=== PATIENT | female | born 1960 | race Caucasian/White ===

== ENCOUNTER 2018-03-09 17:00 | Inpatient (IN) | payer MEDICARE, MEDICAID ==
[2018-03-09] MEDS ORDERED: methylPREDNISolone 125 MG* 2 ML VIAL IV ONE (17:26)
[2018-03-09 17:37] LABS: ABS Basophils 0.1 10^3/ul (0-0.2); ABS Eosinophils 0.1 10^3/ul (0-0.6); ABS Lymphocytes 1.4 10^3/ul (1.0-4.8); ABS Monocytes 0.5 10^3/ul (0-0.8); ABS Neutrophils 3.9 10^3/ul (1.5-7.7); ABS Nucleated RBC 0 10^3/ul; Eosinophil % 1.8 % (0-6); Hematocrit 41 % (35-47); Hemoglobin 14.2 g/dl (12.0-16.0); Lymphocyte % 23.3 % (25-47); Mean Corpuscular HGB Conc 35 g/dl (31-36); Mean Corpuscular Hemoglobin 31 pg (27-31); Mean Corpuscular Volume 88 fL (80-97); Mean Platelet Volume 8.2 um3 (7.4-10.4); Nucleated Red Blood Cells % 0.1; Platelet Count 174 10^3/ul (150-450); Red Blood Count 4.66 10^6/ul (4.00-5.40); Red Cell Distribution Width 13 % (10.5-15)
[2018-03-09 17:50] LABS: EGFR Non-African American 59.2 (>60)
[2018-03-09] MEDS: Albuterol/Ipratropium NEB.SOL* Albuterol 2.5 MG/Ipratropium 0.5 MG 3 ML INH SCH ×3 (18:00→18:49)
--- NOTE | 2018-03-09 18:07 | RAD ---
INDICATION: Wheezing. COMPARISON: Comparison is made with a prior study from [facility] 2007. TECHNIQUE: AP and lateral views of the chest were obtained. FINDINGS: The heart is within normal limits in size. Mediastinal and hilar contours appear within normal limits. The lungs are hyperinflated and clear. No pleural effusion is seen. IMPRESSION: THE LUNGS ARE HYPERINFLATED AND CLEAR.
[2018-03-09 19:22] LABS: Urine Appearance Clear; Urine Blood Negative (Negative); Urine Color Yellow; Urine Ketones 1+ (Negative); Urine Protein Negative (Negative); Urine Specific Gravity 1.012 (1.010-1.030); Urine Urobilinogen Negative (Negative)
[2018-03-09] MEDS ORDERED: Nicotine PATCH 21 MG/24 HR* PATCH TRANSDERM ONE (23:54)
--- NOTE | 2018-03-10 02:11 | ED ---
I, Leeanna Crane, scribed for Kristin Knapp MD on 03/09/18 at 2150 . Progress - Progress Note Progress Note: The pt is a sign out from at shift change pending MHE. Course/Dx - Course Course Of Treatment: The pt will be voluntarily admitted by Dr. Massey. She is diagnosed with psychosis NOS. Discharge - Sign-Out/Discharge Documenting (check all that apply): Discharge/Admit/Transfer - Admit, Receiving Sign-Out Receiving patient FROM: Martell Rojas - Pending MHE. - Discharge Plan Condition: Stable Disposition: PSYCHIATRIC FACILITY-[facility] [place] Referrals: Miguelito Hernandez MD [Medical Doctor] - The documentation as recorded by the Royce caballero Stephanie accurately reflects the service I personally performed and the decisions made by Aria roth Abdul, MD.
[2018-03-10] MEDS ORDERED: Nicotine GUM* 2 MG PO PRN (06:24)
[2018-03-10] MEDS ORDERED: Al Hydrox/Mg Hydrox/Simet LIQ* 30 ML UDC PO PRN (06:24)
[2018-03-10] MEDS ORDERED: Ibuprofen TAB* 400 MG PO ONE (07:25)
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
[2018-03-10] MEDS: Tiotropium Respimt 2.5 mcg(NF) 1 PUFF MDI INH SCH (10:24)
[2018-03-10] MEDS: Nicotine PATCH 21 MG/24 HR* PATCH TRANSDERM SCH (10:24)
[2018-03-10] MEDS: Vitamin THERAPEUTIC TAB PO SCH (10:24)
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
--- NOTE | 2018-03-10 10:48 | ED ---
Escobar Bruno Tiffany, scribed for Martell Rojas MD on 03/09/18 at 1736 . Psychiatric Complaint - HPI Summary HPI Summary: 57 year old F presenting to [facility] complains of paranoia since one and a half weeks ago. Symptoms aggravated by nothing. Symptoms alleviated by nothing. Patient has difficulty breathing, recent weight loss, delusional thoughts per sister. Hx COPD. Hx psychiatric disorders. Patient has not been taking her psychiatric medications appropriately per sister. - History Of Current Complaint Chief Complaint: EDAltMentalStatus Time Seen by Provider: 03/09/18 17:15 Hx Obtained From: Patient Onset/Duration: Lasting Weeks - 1.5 weeks, Still Present Aggravating Factor(s): Nothing Alleviating Factor(s): Nothing - Allergies/Home Medications Allergies/Adverse Reactions: Allergies Allergy/AdvReac Type Severity Reaction Status Date / Time divalproex sodium Allergy Unknown Verified 03/09/18 17:42 [From Depakote] Reaction Details gabapentin [From Neurontin] Allergy Unknown Verified 03/09/18 17:42 Reaction Details lithium Allergy Unknown Verified 03/09/18 17:42 Reaction Details quetiapine [From Seroquel] Allergy See Comment Verified 03/09/18 17:42 sertraline [From Zoloft] Allergy See Comment Verified 03/09/18 17:42 Home Medications: Home Medications Dextroamphetamine/Amphetamine [Adderall Xr 30 mg Capsule] 30 mg PO DAILY [History Confirmed 03/09/18] Diazepam TAB(*) [Valium TAB(*)] 10 mg PO BID PRN 03/09/18 [History Confirmed 08/16] Tiotropium [place] [Spiriva Respimat] 4 gm INH DAILY 03/09/18 [History Confirmed 03/09/18] PMH/Surg Hx/FS Hx/Imm Hx Previously Healthy: No Respiratory History: Reports: Hx Asthma, Hx Chronic Obstructive Pulmonary Disease (COPD) Psychiatric History: Reports: Hx Attention Deficit Hyperactivity Disorder, Hx Autism, Hx Post Traumatic Stress Disorder, Hx Bipolar Disorder, Hx Suicide Attempt - Surgical History Surgery Procedure, Year, and Place: Appendectomy Infectious Disease History: No Infectious Disease History: Denies: Traveled Outside the [place] in Last 30 Days - Family History Known Family History: Positive: Other - Sister has panic disorder - Social History Alcohol Use: None Hx Substance Use: Yes Substance Use Type: Reports: Marijuana Hx Tobacco Use: No Smoking Status (MU): Unknown if Ever Smoked Review of Systems Positive: Other - recent weight loss Positive: Other - difficulty breathing Positive: Other - paranoia, delusional thoughts All Other Systems Reviewed And Are Negative: Yes Physical Exam - Summary Physical Exam Summary: VITAL SIGNS: Reviewed. GENERAL: Patient is a thin female who is lying comfortable in the stretcher. Patient is not in any acute respiratory distress. HEAD AND FACE: No signs of trauma. No ecchymosis, hematomas or skull depressions. No sinus tenderness. EYES: PERRLA, EOMI x 2, No injected conjunctiva, no nystagmus. EARS: Hearing grossly intact. Ear canals and tympanic membranes are within normal limits. MOUTH: Oropharynx within normal limits. NECK: Supple, trachea is midline, no adenopathy, no JVD, no carotid bruit, no c- spine tenderness, neck with full ROM. CHEST: Symmetric, no tenderness at palpation LUNGS: She has wheezes in both lungs and crackles in bases of lungs CVS: Regular rate and rhythm, S1 and S2 present, no murmurs or gallops appreciated. ABDOMEN: Soft, non-tender. No signs of distention. No rebound no guarding, and no masses palpated. Bowel sounds are normal. EXTREMITIES: FROM in all major joints, no edema, no cyanosis or clubbing. NEURO: Alert and oriented x 3. No acute neurological deficits. Speech is normal and follows commands. SKIN: She has written notes on her legs PSYCH: Depressed, quiet, and denies any suicidal thoughts or plan. No homicidal thoughts or plan. No signs of psychosis or pressure speech. No tangential speech. Triage Information Reviewed: Yes Vital Signs On Initial Exam: Initial Vitals Temp Pulse Resp BP Pulse Ox 96.9 F 84 16 163/90 97 03/09/18 17:03 03/09/18 17:03 03/09/18 17:03 03/09/18 17:03 03/09/18 17:03 Vital Signs Reviewed: Yes Diagnostics - Vital Signs Vital Signs Temp Pulse Resp BP Pulse Ox 03/09/18 17:03 96.9 F 84 16 163/90 97 - Laboratory Lab Results: Lab Results 03/09/18 03/09/18 03/09/18 Range/Units 17:29 17:29 19:12 WBC 6.0 (3.5-10.8) 10^3/ul RBC 4.66 (4.00-5.40) 10^6/ul Hgb 14.2 (12.0-16.0) g/dl Hct 41 (35-47) % MCV 88 (80-97) fL MCH 31 (27-31) pg MCHC 35 (31-36) g/dl RDW 13 (10.5-15) % Plt Count 174 (150-450) 10^3/ul MPV 8.2 (7.4-10.4) um3 Neut % (Auto) 65.0 (38-83) % Lymph % (Auto) 23.3 L (25-47) % [place] % (Auto) 8.7 H (0-7) % Eos % (Auto) 1.8 (0-6) % Baso % (Auto) 1.2 (0-2) % Absolute Neuts (auto) 3.9 (1.5-7.7) 10^3/ul Absolute Lymphs (auto) 1.4 (1.0-4.8) 10^3/ul Absolute Monos (auto) 0.5 (0-0.8) 10^3/ul Absolute Eos (auto) 0.1 (0-0.6) 10^3/ul Absolute Basos (auto) 0.1 (0-0.2) 10^3/ul Absolute Nucleated RBC 0 10^3/ul Nucleated RBC % 0.1 Sodium 140 (139-145) mmol/L Potassium 4.4 (3.5-5.0) mmol/L Chloride 101 (101-111) mmol/L Carbon Dioxide 26 (22-32) mmol/L Anion Gap 13 H (2-11) mmol/L BUN 18 (6-24) mg/dL Creatinine 0.97 H (0.51-0.95) mg/dL Est GFR ( Amer) 76.1 (>60) Est GFR (Non-Af Amer) 59.2 (>60) BUN/Creatinine Ratio 18.6 (8-20) Glucose 78 (70-100) mg/dL Calcium 9.9 (8.6-10.3) mg/dL Total Bilirubin 1.10 H (0.2-1.0) mg/dL AST 44 H (13-39) U/L ALT 44 (7-52) U/L Alkaline Phosphatase 48 (34-104) U/L Total Protein 7.0 (6.4-8.9) g/dL Albumin 4.5 (3.2-5.2) g/dL Globulin 2.5 (2-4) g/dL Albumin/Globulin Ratio 1.8 (1-3) TSH 1.70 (0.34-5.60) mcIU/mL Urine Color Yellow Urine Appearance Clear Urine pH 5.0 (5-9) Ur Specific [place] 1.012 (1.010-1.030) Urine Protein Negative (Negative) Urine Ketones 1+ A (Negative) Urine Blood Negative (Negative) Urine Nitrate Negative (Negative) Urine Bilirubin Negative (Negative) Urine Urobilinogen Negative (Negative) Ur Leukocyte Esterase Negative (Negative) Urine Glucose Negative (Negative) Salicylates < 2.50 (<30) mg/dL Urine Opiates Screen (None Detect) Acetaminophen < 15 mcg/mL Ur Barbiturates Screen (None Detect) Ur Phencyclidine Scrn (None Detect) Ur Amphetamines Screen (None Detect) U Benzodiazepines Scrn (None Detect) Urine Cocaine Screen (None Detect) U Cannabinoids Screen (None Detect) Serum Alcohol < 10 (<10) mg/dL 03/09/18 Range/Units 19:12 WBC (3.5-10.8) 10^3/ul RBC (4.00-5.40) 10^6/ul Hgb (12.0-16.0) g/dl Hct (35-47) % MCV (80-97) fL MCH (27-31) pg MCHC (31-36) g/dl RDW (10.5-15) % Plt Count (150-450) 10^3/ul MPV (7.4-10.4) um3 Neut % (Auto) (38-83) % Lymph % (Auto) (25-47) % [place] % (Auto) (0-7) % Eos % (Auto) (0-6) % Baso % (Auto) (0-2) % Absolute Neuts (auto) (1.5-7.7) 10^3/ul Absolute Lymphs (auto) (1.0-4.8) 10^3/ul Absolute Monos (auto) (0-0.8) 10^3/ul Absolute Eos (auto) (0-0.6) 10^3/ul Absolute Basos (auto) (0-0.2) 10^3/ul Absolute Nucleated RBC 10^3/ul Nucleated RBC % Sodium (139-145) mmol/L Potassium (3.5-5.0) mmol/L Chloride (101-111) mmol/L Carbon Dioxide (22-32) mmol/L Anion Gap (2-11) mmol/L BUN (6-24) mg/dL Creatinine (0.51-0.95) mg/dL Est GFR ( Amer) (>60) Est GFR (Non-Af Amer) (>60) BUN/Creatinine Ratio (8-20) Glucose (70-100) mg/dL Calcium (8.6-10.3) mg/dL Total Bilirubin (0.2-1.0) mg/dL AST (13-39) U/L ALT (7-52) U/L Alkaline Phosphatase (34-104) U/L Total Protein (6.4-8.9) g/dL Albumin (3.2-5.2) g/dL Globulin (2-4) g/dL Albumin/Globulin Ratio (1-3) TSH (0.34-5.60) mcIU/mL Urine Color Urine Appearance Urine pH (5-9) Ur Specific [place] (1.010-1.030) Urine Protein (Negative) Urine Ketones (Negative) Urine Blood (Negative) Urine Nitrate (Negative) Urine Bilirubin (Negative) Urine Urobilinogen (Negative) Ur Leukocyte Esterase (Negative) Urine Glucose (Negative) Salicylates (<30) mg/dL Urine Opiates Screen None detected (None Detect) Acetaminophen mcg/mL Ur Barbiturates Screen None detected (None Detect) Ur Phencyclidine Scrn None detected (None Detect) Ur Amphetamines Screen Presumptive positive A (None Detect) U Benzodiazepines Scrn Presumptive positive A (None Detect) Urine Cocaine Screen None detected (None Detect) U Cannabinoids Screen Presumptive positive A (None Detect) Serum Alcohol (<10) mg/dL Result Diagrams: 03/09/18 17:29 03/09/18 17:29 Lab Statement: Any lab studies that have been ordered have been reviewed, and results considered in the medical decision making process. - Radiology CXR Radiology Interpretation Completed By: Radiologist - THE LUNGS ARE HYPERINFLATED AND CLEAR. ED physician has reviewed this report. Course/Dx - Course Assessment/Plan: Blood work w/o a significant abnormality. She is medically cleared. She is awaiting for a MHE. Patient is hemodynamically stable and A+O x 3. This patient was signed out to Dr. Knapp at shift change. - Differential Dx/Clinical Impression Differential Diagnosis/HQI/PQRI: Positive: Acute Psychosis, Anxiety, Depression Provider Diagnosis: Anxiety Discharge - Sign-Out/Discharge Documenting (check all that apply): Discharge/Admit/Transfer - Discharge Plan Condition: Stable [place] [place] Disposition and Condition Condition: STABLE Disposition[place] [facility] [place] The documentation as recorded by the Escobar caballero Tiffany accurately reflects the service I personally performed and the decisions made by Bob roth Walter, MD.
[2018-03-10] MEDS: Acetaminophen TAB* 325 MG PO PRN (14:02)
[2018-03-10] MEDS: ARIPiprazole TAB* 5 MG PO SCH (16:00)
[2018-03-10] MEDS: Diazepam TAB(*) 10 MG PO SCH (16:00)
[2018-03-11] MEDS: Nicotine Patch Removal NOTE PATCH OFF SCH ×2 (00:58→20:50)
[2018-03-11] MEDS: Diazepam TAB(*) 10 MG PO SCH ×2 (00:59→08:43)
[2018-03-11] MEDS: Acetaminophen TAB* 325 MG PO PRN ×2 (08:41→16:37)
[2018-03-11] MEDS: ARIPiprazole TAB* 5 MG PO SCH (08:42)
[2018-03-11] MEDS: Tiotropium Respimt 2.5 mcg(NF) 1 PUFF MDI INH SCH (08:44)
[2018-03-11] MEDS: Vitamin THERAPEUTIC TAB PO SCH (08:44)
[2018-03-11] MEDS: Nicotine PATCH 21 MG/24 HR* PATCH TRANSDERM SCH (11:34)
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
[2018-03-11] MEDS: Zolpidem TAB* 5 MG PO PRN (20:49)
[2018-03-11] MEDS: OLANzapine TAB* 10 MG PO SCH (20:49)
[2018-03-12] MEDS: Vitamin THERAPEUTIC TAB PO SCH (08:43)
[2018-03-12] MEDS: Diazepam TAB(*) 5 MG PO SCH ×2 (08:44→15:50)
[2018-03-12] MEDS: Acetaminophen TAB* 325 MG PO PRN (08:45)
[2018-03-12] MEDS: Tiotropium Respimt 2.5 mcg(NF) 1 PUFF MDI INH SCH (11:39)
[2018-03-12] MEDS: Nicotine Inhaler* 10 MG AMP INH PRN (14:15)
[2018-03-12] MEDS ORDERED: Mouth Piece, Nicotine* 1 EACH CARTRIDGE ONE (14:15)
--- NOTE | 2018-03-12 19:58 | PN ---
Subjective - Subjective Subjective: Psychiatric Attending Progress Note: patient did sleep 7 to 8 hours last night. she reports zyprexa 10 mg and ambien 5 mg helped her to relax. she feels calmer, less agitated. per nursing she ate half her breakfast and half lunch. she has been drinking ensure plus. she remains seclusive to her room most of the day. she did attend an occasional group. she continues to exhibit thought disorganization irrelevant responses, rambling speech, flight of ideas, illogic and irrelevant statement. she also remains pressured, hyperverbal. she is able to take care of her ADL's. thus far, dietary consult has not been completed. patient had diminished appetite. she tells me that she cannot eat her entire meal because she feels full and is concerned about vomiting if she eats too much. patient does not make any delusional statement. she shows severe psychomotor acceleration. her speech is garbled and at times unintellibible. she is highly insecure. she apologizes frequently during our discussion. Vital Signs: Temp Pulse Resp BP Pulse Ox 98.2 F 63 16 149/80 100 03/12/18 07:48 03/12/18 07:48 03/12/18 15:50 03/12/18 07:48 03/12/18 07:48 Objective - Appearance Appearance: Thin Framed, Other - cahectic Dysmorphic Features: No Hygiene: Dirty Grooming: Disheveled - Behavior Psychomotor Activities: Abnormal-Increased Exhibits Abnormal Movement: Yes - Attitude and Relatedness Attitude and Relatedness: Child Like - needy, psychotically related, regressed Eye Contact: Fair - Speech Quality: Pressured Latencies: Short Quantity: Copious - Mood Patient's Decription of Mood: "Upset" - anxious, dysphoric - Affect Observed Affect: Labile Affect Consistent with: Euphoria - Thought Process Patient's Thought Process: Incoherent, Disorganized, Tangential, Filght of Ideas , Impoverished Thought Content: Yes Paranoid Ideation, No Passive Wish, No Suicidal Planning, No Homicidal Ideation - Sensorium Type of Hallucinations: Visual: No, Auditory: No, Command: No - Level of Consciousness Level of Consciousness: Agitated Orientation: Yes Intact, Yes Orientated to Time, Yes Orientated to Place, Yes Orientated to Person - Impulse Control Impulse Control: Impaired - Insight and Judgement Insight and Judgement: Impaired - Group Participation Particating in Group Activities: No - Medication Management Medication Management Adherence: Yes Assessment - Assessment Merits Inpatient Hospitalization: For Immediate Safety, For Stabilization, Diagnosis Determination, For Ongoing Evaluation Clinical Impression: 57 yo with psychotic illness likely scizoaffective disorder patient continues to be gravely disabled and meets criteria for continued hospital treatment. patient requires stabalization. she also is failure to thrive and malnourished anorexia likely secondary to psychosis. Plan - Plan Medications: Plan: continue zyprexa 10 mg po qhs ambien 5 mg po QHS awaiting dietary consult for malnutrition and anorexia weigh 3 times weekly ensure plus 4 times per day will likely require assisted living/supportive housing unlikely that patient will be able to return to independent living. if no weight gain after one week, I will request hospitalist consult to rule out organic cauase of anorexia.(ie malignancy) Current Medications Acetaminophen (Tylenol Tab*) 650 mg PO Q4H PRN PRN Reason: PAIN or TEMP > 101 F Last Admin: 03/12/18 08:45 Dose: 650 mg Al Hydrox/Mg Hydrox/Simethicone (Maalox Plus*) 30 ml PO Q4H PRN PRN Reason: INDIGESTION Device (Nicotine Mouth Piece*) 1 each INH .CARTRIDGE [facility] Diazepam (Valium Tab(*)) 5 mg PO BID@09,16 [facility] Last Admin: 03/12/18 15:50 Dose: 5 mg Diphenhydramine HCl (Benadryl Po*) 50 mg PO Q6H PRN PRN Reason: AGITATION/INSOMNIA Multivitamins (Theragran Tab*) 1 tab PO DAILY [facility] Last Admin: 03/12/18 08:43 Dose: 1 tab Nicotine (Nicotine Inhaler*) 10 mg INH Q2H PRN PRN Reason: CRAVING Last Admin: 03/12/18 14:15 Dose: 10 mg Nicotine (Nicotine Patch 14 Mg/24 Hr*) 1 patch TRANSDERM DAILY [facility] Olanzapine (Zyprexa Tab*) 10 mg PO BEDTIME [facility] Last Admin: 03/11/18 20:49 Dose: 10 mg Pharmacy Profile Note (Nicotine Patch Removal Note*) 1 note PATCH OFF 2100 [facility] Last Admin: 03/11/18 20:50 Dose: 1 note Tiotropium [place] (Spiriva Respimat 2.5 Mcg(Nf)) 1 puff INH DAILY [facility] Last Admin: 03/12/18 11:39 Dose: Not Given Trazodone HCl (Desyrel Tab*) 50 mg PO BEDTIME PRN PRN Reason: mid am awakening Zolpidem Tartrate (Ambien Tab*) 5 mg PO BEDTIME PRN PRN Reason: INSOMNIA Last Admin: 03/11/18 20:49 Dose: 5 mg
[2018-03-12] MEDS: OLANzapine TAB* 10 MG PO SCH (20:58)
[2018-03-12] MEDS: traZODone TAB* 50 MG TAB PO PRN (20:58)
[2018-03-12] MEDS: Nicotine PATCH 14 MG/24 HR* PATCH TRANSDERM SCH (21:00)
[2018-03-12] MEDS: Nicotine Patch Removal NOTE PATCH OFF SCH (21:01)
[2018-03-13] MEDS: Nicotine PATCH 14 MG/24 HR* PATCH TRANSDERM SCH (08:20)
[2018-03-13] MEDS: Tiotropium Respimt 2.5 mcg(NF) 1 PUFF MDI INH SCH (08:21)
[2018-03-13] MEDS: Acetaminophen TAB* 325 MG PO PRN ×3 (08:22→21:26)
[2018-03-13] MEDS: Vitamin THERAPEUTIC TAB PO SCH (08:22)
[2018-03-13] MEDS: Diazepam TAB(*) 5 MG PO SCH ×2 (08:22→16:39)
[2018-03-13] MEDS ORDERED: Spiriva Inhaler DEVICE* 1 EACH DEVICE INH SCH ×2 (11:00)
[2018-03-13] MEDS ORDERED: Spiriva Inhaler DEVICE* 1 EACH DEVICE SCH (11:00)
[2018-03-13] MEDS: Tiotropium CAP.INH* CAP.INH/18 MCG (USE ORDER SET !) INH SCH (12:33)
--- NOTE | 2018-03-13 12:53 | PN ---
Subjective - Subjective Subjective: Psychiatric Attending Progress Note: weight 99 lbs 8 oz today compared to 95 lbs 3 days ago (4.5 pound gain) sleeping through the night much improved appetite no complaints tolerating zyprexa well without any side effects noted voiding and having normal bowel movements Objective - Appearance Appearance: Thin Framed Dysmorphic Features: No Hygiene: Normal Grooming: Disheveled - Behavior Psychomotor Activities: Normal Exhibits Abnormal Movement: No - Attitude and Relatedness Attitude and Relatedness: Cooperative Eye Contact: Poor - Speech Quality: Unpressured Latencies: Normal Quantity: Copious - Mood Patient's Decription of Mood: "Okay" - Affect Observed Affect: Constricted Affect Consistent with: Dysphoria - Thought Process Patient's Thought Process: Disorganized, Loose Associations, Tangential, Circumstantial Thought Content: No Passive Wish, No Suicidal Planning, No Homicidal Ideation, No Paranoid Ideation - Sensorium Experiencing Hallucinations: No, Sensorium is Clear Type of Hallucinations: Visual: No, Auditory: No, Command: No - Level of Consciousness Level of Consciousness: Alert Orientation: Yes Intact, Yes Orientated to Time, Yes Orientated to Place, Yes Orientated to Person - Impulse Control Impulse Control: Intact - Insight and Judgement Insight and Judgement: Fair - Group Participation Particating in Group Activities: No - Medication Management Medication Management Adherence: Yes Assessment - Assessment Merits Inpatient Hospitalization: For Stabilization, For Ongoing Evaluation, Consolidate Improvements Clinical Impression: 57 yo with psychotic illness likely scizoaffective disorder patient continues to be gravely disabled and meets criteria for continued hospital treatment. patient requires stabalization. she also is failure to thrive and malnourished but has had 4.5 pound weight gain since admission. Plan - Plan Treatment Plan: Name: SHIMA ROSARIO Birthdate: 1960 [id number] Medications: Plan: Increase Zyprexa to 15 mg qhs continue ambien 5 mg qhs all other medications unchanged. Current Medications Acetaminophen (Tylenol Tab*) 650 mg PO Q4H PRN PRN Reason: PAIN or TEMP > 101 F Last Admin: 03/13/18 08:22 Dose: 650 mg Al Hydrox/Mg Hydrox/Simethicone (Maalox Plus*) 30 ml PO Q4H PRN PRN Reason: INDIGESTION Device (Nicotine Mouth Piece*) 1 each INH .CARTRIDGE ANASTASIA Device (Tiotropium Inhaler Device*) 1 each INH .USE w/ SPIRIVA CAPS [facility] Diazepam (Valium Tab(*)) 5 mg PO BID@,16 [facility] Last Admin: 03/13/18 08:22 Dose: 5 mg Diphenhydramine HCl (Benadryl Po*) 50 mg PO Q6H PRN PRN Reason: AGITATION/INSOMNIA Multivitamins (Theragran Tab*) 1 tab PO DAILY [facility] Last Admin: 03/13/18 08:22 Dose: 1 tab Nicotine (Nicotine Inhaler*) 10 mg INH Q2H PRN PRN Reason: CRAVING Last Admin: 03/12/18 14:15 Dose: 10 mg Nicotine (Nicotine Patch 14 Mg/24 Hr*) 1 patch TRANSDERM DAILY [facility] Last Admin: 03/13/18 08:20 Dose: 1 patch Olanzapine (Zyprexa Tab*) 10 mg PO BEDTIME [facility] Last Admin: 03/12/18 20:58 Dose: 10 mg Pharmacy Profile Note (Nicotine Patch Removal Note*) 1 note PATCH OFF 2100 [facility] Last Admin: 03/12/18 21:01 Dose: Not Given Tiotropium [place] (Spiriva Respimat 2.5 Mcg(Nf)) 1 puff INH DAILY [facility] Last Admin: 03/13/18 08:21 Dose: Not Given Tiotropium [place] (Spiriva Cap.Inh*) 1 cap INH DAILY [facility] Last Admin: 03/13/18 12:33 Dose: 1 cap Trazodone HCl (Desyrel Tab*) 50 mg PO BEDTIME PRN PRN Reason: mid am awakening Last Admin: 03/12/18 20:58 Dose: 50 mg Zolpidem Tartrate (Ambien Tab*) 5 mg PO BEDTIME PRN PRN Reason: INSOMNIA Last Admin: 03/11/18 20:49 Dose: 5 mg
[2018-03-13] MEDS: Zolpidem TAB* 5 MG PO PRN (21:23)
[2018-03-13] MEDS: OLANzapine TAB* 10 MG PO SCH (21:24)
[2018-03-13] MEDS: Nicotine Patch Removal NOTE PATCH OFF SCH (22:53)
[2018-03-14] MEDS: Nicotine PATCH 14 MG/24 HR* PATCH TRANSDERM SCH (08:28)
[2018-03-14] MEDS: Tiotropium CAP.INH* CAP.INH/18 MCG (USE ORDER SET !) INH SCH (08:29)
[2018-03-14] MEDS: Vitamin THERAPEUTIC TAB PO SCH (08:31)
[2018-03-14] MEDS: Diazepam TAB(*) 5 MG PO SCH ×2 (08:31→15:41)
[2018-03-14] MEDS: Acetaminophen TAB* 325 MG PO PRN ×2 (08:38→15:41)
[2018-03-14] MEDS: Tiotropium Respimt 2.5 mcg(NF) 1 PUFF MDI INH SCH (11:13)
[2018-03-14] MEDS: Nicotine Patch Removal NOTE PATCH OFF SCH (20:07)
[2018-03-14] MEDS: OLANzapine TAB* 10 MG PO SCH (20:07)
[2018-03-14] MEDS: Zolpidem TAB* 5 MG PO PRN (20:51)
[2018-03-15] MEDS: Acetaminophen TAB* 325 MG PO PRN ×2 (07:26→15:58)
[2018-03-15] MEDS: Tiotropium CAP.INH* CAP.INH/18 MCG (USE ORDER SET !) INH SCH (08:21)
[2018-03-15] MEDS: Nicotine PATCH 14 MG/24 HR* PATCH TRANSDERM SCH (08:21)
[2018-03-15] MEDS: Diazepam TAB(*) 5 MG PO SCH ×2 (08:22→15:58)
[2018-03-15] MEDS: Vitamin THERAPEUTIC TAB PO SCH (08:23)
--- NOTE | 2018-03-15 16:38 | PN ---
Subjective - Subjective Date of Service: 03/15/18 Service Type: 88403 Hosp care 15 min low complexity Subjective: Saw patient in her room as she continues to be aloof and prefers to stay away from the crowd. Says her thoughts are clearer and she has been enjoying good sunshine and wishes to go out for a walk if allowed. Denies hallucinations, SI or HI. Continues to sleep enough however had interrupted sleep last night and was hesitant to ask for Ambien. Eating enough and has gained some weight per Nursing reports. Objective - Appearance Appearance: Healthy Appearing, Thin Framed Dysmorphic Features: No Hygiene: Normal Grooming: Well Kept - Behavior Psychomotor Activities: Normal Exhibits Abnormal Movement: No - Attitude and Relatedness Attitude and Relatedness: Appropriate Eye Contact: Good - Speech Quality: Unpressured Latencies: Normal Quantity: Appropriate - Mood Patient's Decription of Mood: "Fine" - Affect Observed Affect: Depressed Affect Consistent with: Dysphoria - Thought Process Patient's Thought Process: Coherent, Goal Directed Thought Content: Yes Paranoid Ideation - Unspecified, No Passive Wish, No Suicidal Planning, No Homicidal Ideation - Sensorium Experiencing Hallucinations: No, Sensorium is Clear Type of Hallucinations: Visual: No, Auditory: No, Command: No - Level of Consciousness Level of Consciousness: Alert Orientation: Yes Intact, Yes Orientated to Time, Yes Orientated to Place, Yes Orientated to Person - Impulse Control Impulse Control: Intact - Insight and Judgement Insight and Judgement: Fair - Group Participation Particating in Group Activities: No - Medication Management Medication Management Adherence: Yes - Stays to self. Assessment - Assessment Merits Inpatient Hospitalization: For Stabilization, Pending Safe DC Plan Clinical Impression: Improving on current treatments and will need more time to consolidate improvement. Plan - Plan Treatment Plan: Name: SHIMA ROSARIO Birthdate: 1960 [id number] Continued Medication Management: Continue Outpt Medication Medications: Current Medications Acetaminophen (Tylenol Tab*) 650 mg PO Q4H PRN PRN Reason: PAIN or TEMP > 101 F Last Admin: 03/15/18 15:58 Dose: 650 mg Al Hydrox/Mg Hydrox/Simethicone (Maalox Plus*) 30 ml PO Q4H PRN PRN Reason: INDIGESTION Device (Nicotine Mouth Piece*) 1 each INH .CARTRIDGE ANASTASIA Device (Tiotropium Inhaler Device*) 1 each INH .USE w/ SPIRIVA CAPS [facility] Diazepam (Valium Tab(*)) 5 mg PO BID@ [facility] Last Admin: 03/15/18 15:58 Dose: 5 mg Diphenhydramine HCl (Benadryl Po*) 50 mg PO Q6H PRN PRN Reason: AGITATION/INSOMNIA Multivitamins (Theragran Tab*) 1 tab PO DAILY [facility] Last Admin: 03/15/18 08:23 Dose: 1 tab Nicotine (Nicotine Inhaler*) 10 mg INH Q2H PRN PRN Reason: CRAVING Last Admin: 03/12/18 14:15 Dose: 10 mg Nicotine (Nicotine Patch 14 Mg/24 Hr*) 1 patch TRANSDERM DAILY [facility] Last Admin: 03/15/18 08:21 Dose: 1 patch Olanzapine (Zyprexa Tab*) 15 mg PO BEDTIME [facility]STAS[facility] Last Admin: 03/14/18 20:07 Dose: 15 mg Pharmacy Profile Note (Nicotine Patch Removal Note*) 1 note PATCH OFF 2100 [facility] Last Admin: 03/14/18 20:07 Dose: 1 note Tiotropium [place] (Spiriva Cap.Inh*) 1 cap INH DAILY [facility] Last Admin: 03/15/18 08:21 Dose: 1 cap Trazodone HCl (Desyrel Tab*) 50 mg PO BEDTIME PRN PRN Reason: mid am awakening Last Admin: 03/12/18 20:58 Dose: 50 mg Zolpidem Tartrate (Ambien Tab*) 5 mg PO BEDTIME PRN PRN Reason: INSOMNIA Last Admin: 03/14/18 20:51 Dose: 5 mg - Discharge Plan Discharge Plan: [facility]
[2018-03-15] MEDS: Zolpidem TAB* 5 MG PO PRN (20:40)
[2018-03-15] MEDS: OLANzapine TAB* 10 MG PO SCH (20:40)
[2018-03-15] MEDS: Nicotine Patch Removal NOTE PATCH OFF SCH (21:16)
[2018-03-16] MEDS: traZODone TAB* 50 MG TAB PO PRN (03:32)
[2018-03-16] MEDS: Vitamin THERAPEUTIC TAB PO SCH (07:37)
[2018-03-16] MEDS: Nicotine PATCH 14 MG/24 HR* PATCH TRANSDERM SCH (07:37)
[2018-03-16] MEDS: Diazepam TAB(*) 5 MG PO SCH (07:37)
[2018-03-16] MEDS: Tiotropium CAP.INH* CAP.INH/18 MCG (USE ORDER SET !) INH SCH (10:55)
--- NOTE | 2018-03-16 14:11 | PN ---
Subjective - Subjective Subjective: Psychiatric Attending Progress Note: family meeting with 87 yo mother and older sister. after graduating high school , patient went to live in [place] near her father and worked as a dealer sales rep for 12 years. she abused drugs (cocaine). she medicated her mental issues with drugs (cocaine ). Past 15 years mental health has deteriorated further. never really took medication for very long. no one has been able to get her to consistently follow up with mental health providers. very abusive verbally to family when she is decompensated but not physically aggressive. MSE: patient was highly disruptive to meeting. pressured, loud, disorganized speech, constantly interrupting, rambling often about irrelevant topics. unable to wait her turn. highly labile. crying one minute laughing the next. no AH,VH,SI,HI. patient has flight of ideas and racing thoughts. distractible and agitated alert and oriented. insight and judgement are poor. Impression: schizoaffective Disorder bipolar type manic with psychotic features Plan: d/c zyprexa start saphris 10 mg qhs INcrease Valium to 10 mg BID at 9 and 9 Start carbemazepam XR 200 mg daily for bipolar [place]/mood stabalization motrin 400 mg q4h for back pain Assessment - Assessment Clinical Impression: 57 yo with psychotic illness likely scizoaffective disorder patient continues to be gravely disabled and meets criteria for continued hospital treatment. patient requires stabalization. she also is failure to thrive and malnourished but has had 4.5 pound weight gain since admission. Plan - Plan Treatment Plan: Name: SHIMA ROSARIO Birthdate: 1960 [id number] Medications: Current Medications Acetaminophen (Tylenol Tab*) 650 mg PO Q4H PRN PRN Reason: PAIN or TEMP > 101 F Last Admin: 03/15/18 15:58 Dose: 650 mg Al Hydrox/Mg Hydrox/Simethicone (Maalox Plus*) 30 ml PO Q4H PRN PRN Reason: INDIGESTION Device (Nicotine Mouth Piece*) 1 each INH .CARTRIDGE ANASTSAIA Device (Tiotropium Inhaler Device*) 1 each INH .USE w/ SPIRIVA CAPS ANASTASIA Last Admin: 03/16/18 10:54 Dose: 1 each Diazepam (Valium Tab(*)) 5 mg PO BID@09,16 [facility] Last Admin: 03/16/18 07:37 Dose: 5 mg Diphenhydramine HCl (Benadryl Po*) 50 mg PO Q6H PRN PRN Reason: AGITATION/INSOMNIA Multivitamins (Theragran Tab*) 1 tab PO DAILY [facility] Last Admin: 03/16/18 07:37 Dose: 1 tab Nicotine (Nicotine Inhaler*) 10 mg INH Q2H PRN PRN Reason: CRAVING Last Admin: 03/12/18 14:15 Dose: 10 mg Nicotine (Nicotine Patch 14 Mg/24 Hr*) 1 patch TRANSDERM DAILY [facility] Last Admin: 03/16/18 07:37 Dose: 1 patch Olanzapine (Zyprexa Tab*) 15 mg PO BEDTIME [facility] Last Admin: 03/15/18 20:40 Dose: 15 mg Pharmacy Profile Note (Nicotine Patch Removal Note*) 1 note PATCH OFF 2100 [facility] Last Admin: 03/15/18 21:16 Dose: 1 note Tiotropium [place] (Spiriva Cap.Inh*) 1 cap INH DAILY [facility] Last Admin: 03/16/18 10:55 Dose: 1 cap Trazodone HCl (Desyrel Tab*) 100 mg PO BEDTIME [facility]
[2018-03-16] MEDS ORDERED: Diazepam TAB(*) 5 MG PO ONE (14:35)
[2018-03-16] MEDS: Ibuprofen TAB* 400 MG PO PRN (16:25)
[2018-03-16] MEDS: ASENAPINE 10 MG SL SCH (20:18)
[2018-03-16] MEDS: Diazepam TAB(*) 10 MG PO SCH (20:18)
[2018-03-16] MEDS: hydrOXYzine HCL TAB* 50 MG PO PRN (20:18)
[2018-03-16] MEDS: Nicotine Patch Removal NOTE PATCH OFF SCH (20:19)
[2018-03-16] MEDS ORDERED: traZODone TAB* 50 MG TAB PO SCH ×2 (21:00)
[2018-03-17] MEDS: Ibuprofen TAB* 400 MG PO PRN ×2 (05:05→17:49)
[2018-03-17] MEDS: hydrOXYzine HCL TAB* 25 MG PO PRN (05:56)
[2018-03-17] MEDS: Acetaminophen TAB* 325 MG PO PRN (05:56)
[2018-03-17] MEDS: Nicotine Inhaler* 10 MG AMP INH PRN (05:59)
[2018-03-17] MEDS: Vitamin THERAPEUTIC TAB PO SCH (08:16)
[2018-03-17] MEDS: Nicotine PATCH 14 MG/24 HR* PATCH TRANSDERM SCH (08:16)
[2018-03-17] MEDS: Tiotropium CAP.INH* CAP.INH/18 MCG (USE ORDER SET !) INH SCH (08:16)
[2018-03-17] MEDS: Diazepam TAB(*) 10 MG PO SCH ×2 (08:22→20:36)
[2018-03-17] MEDS ORDERED: carBAMazepine ER TAB(*) 200 MG PO SCH (09:00)
--- NOTE | 2018-03-17 16:23 | PN ---
Subjective - Subjective Subjective: Psychiatric Attending Progress Note: slept 6 to 7 hours last night (saprhis 10 mg, Hydroxyzine 50 mg and Valium 10 mg ) marginal functioning on the unit. Patient does not attend groups and interacts minimally with other patients. She has been eating most of her meals and has gained weight since admission. Admission weight was 95 lbs on 03/10/2018 Today's weight () is 103 lbs. Total weight gain in one week is 8 pounds. reports feeling dizzy, shaky for 3 hours after taking Carbamazepine ER 200 mg this AM MSE: remains disheveled with poor hygiene. speech: hyperverbal, rapid rate, pressured, mood: labile. euphoric and at times irritable. Affect: elevated amplitude TP: exhibits disorganized thinking with tangentiality and irrelevant and illogic constructs derails from conversation, flight of ideas, TC: I have not observed paranoia. family tells me that she has been very delusional. I have not seen this. denies AH,VH,SI,HI, mostly talks about medication. reports vague side effects which she attributes to specific medications. alert and oriented in all spheres cogntive testing deferred grossly impaired insight and judgment. Impression: Schizoaffective disorder bipolar type. currently manic with psychotic features Plan: Change Tegretol XR 200 mg from QAM to QHS. Saprhis 10 mg SL qhs change hydroxyzine to 50 mg qhs scheduled. may repeat x 1 if patient awakens mid AM Valium 10 mg BID. Assessment - Assessment Clinical Impression: 57 yo with psychotic illness likely scizoaffective disorder patient continues to be gravely disabled and meets criteria for continued hospital treatment. patient requires stabalization. she also is failure to thrive and malnourished but has had 4.5 pound weight gain since admission. Plan - Plan Treatment Plan: Name: SHIMA ROSARIO Birthdate: 1960 [id number] Medications: Current Medications Acetaminophen (Tylenol Tab*) 650 mg PO Q4H PRN PRN Reason: PAIN or TEMP > 101 F Last Admin: 03/17/18 05:56 Dose: 650 mg Al Hydrox/Mg Hydrox/Simethicone (Maalox Plus*) 30 ml PO Q4H PRN PRN Reason: INDIGESTION Asenapine (Saphris(Nf)) 10 mg SL BEDTIME [facility] Last Admin: 03/16/18 20:18 Dose: 10 mg Carbamazepine (Tegretol Xr Tab(*)) 200 mg PO BEDTIME [facility] Device (Nicotine Mouth Piece*) 1 each INH .CARTRIDGE [facility] Device (Tiotropium Inhaler Device*) 1 each INH .USE w/ SPIRIVA CAPS [facility] Last Admin: 03/16/18 10:54 Dose: 1 each Diazepam (Valium Tab(*)) 10 mg PO BID@ [facility] Last Admin: 03/17/18 08:22 Dose: 10 mg Diphenhydramine HCl (Benadryl Po*) 50 mg PO Q6H PRN PRN Reason: AGITATION/INSOMNIA Last Admin: 03/17/18 05:57 Dose: 50 mg Hydroxyzine HCl (Atarax Tab*) 50 mg PO BEDTIME PRN PRN Reason: INSOMNIA Last Admin: 03/16/18 20:18 Dose: 50 mg Hydroxyzine HCl (Atarax Tab*) 25 mg PO Q4H PRN PRN Reason: agitation/anxiety Last Admin: 03/17/18 05:56 Dose: 25 mg Hydroxyzine HCl (Atarax Tab*) 50 mg PO BEDTIME [facility] Ibuprofen (Motrin Tab*) 400 mg PO Q4H PRN PRN Reason: PAIN Last Admin: 03/17/18 05:05 Dose: 400 mg Multivitamins (Theragran Tab*) 1 tab PO DAILY [facility] Last Admin: 03/17/18 08:16 Dose: 1 tab Nicotine (Nicotine Inhaler*) 10 mg INH Q2H PRN PRN Reason: CRAVING Last Admin: 03/17/18 05:59 Dose: 10 mg Nicotine (Nicotine Patch 14 Mg/24 Hr*) 1 patch TRANSDERM DAILY [facility] Last Admin: 03/17/18 08:16 Dose: 1 patch Pharmacy Profile Note (Nicotine Patch Removal Note*) 1 note PATCH OFF 2100 [facility] Last Admin: 03/16/18 20:19 Dose: 1 note Tiotropium [place] (Spiriva Cap.Inh*) 1 cap INH DAILY [facility] Last Admin: 03/17/18 08:16 Dose: 1 cap
[2018-03-17] MEDS: ASENAPINE 10 MG SL SCH (20:36)
[2018-03-17] MEDS ORDERED: hydrOXYzine HCL TAB* 50 MG PO SCH (21:00)
[2018-03-17] MEDS: Nicotine Patch Removal NOTE PATCH OFF SCH (23:02)
[2018-03-18] MEDS: hydrOXYzine HCL TAB* 50 MG PO PRN (03:35)
[2018-03-18] MEDS: Ibuprofen TAB* 400 MG PO PRN ×3 (03:35→20:51)
[2018-03-18] MEDS: Nicotine PATCH 14 MG/24 HR* PATCH TRANSDERM SCH (08:35)
[2018-03-18] MEDS: Tiotropium CAP.INH* CAP.INH/18 MCG (USE ORDER SET !) INH SCH (08:36)
[2018-03-18] MEDS: Vitamin THERAPEUTIC TAB PO SCH (08:36)
[2018-03-18] MEDS: Diazepam TAB(*) 10 MG PO SCH ×2 (08:38→20:50)
[2018-03-18] MEDS ORDERED: Mouth Piece, Nicotine* 1 EACH CARTRIDGE ONE (14:15)
[2018-03-18] MEDS: Nicotine Inhaler* 10 MG AMP INH PRN ×2 (14:16→20:55)
[2018-03-18] MEDS ORDERED: chlorproMAZINE TAB* 50 MG PO PRN (15:43)
[2018-03-18] MEDS: ASENAPINE 10 MG SL SCH (20:48)
[2018-03-18] MEDS: carBAMazepine ER TAB(*) 200 MG PO SCH (20:49)
[2018-03-18] MEDS: chlorproMAZINE TAB* 50 MG PO SCH (20:50)
[2018-03-18] MEDS: Nicotine Patch Removal NOTE PATCH OFF SCH (20:54)
[2018-03-18] MEDS ORDERED: chlorproMAZINE TAB* 100 MG PO SCH (21:00)
[2018-03-19] MEDS: Ibuprofen TAB* 400 MG PO PRN ×2 (04:55→15:25)
[2018-03-19] MEDS: Nicotine PATCH 14 MG/24 HR* PATCH TRANSDERM SCH (08:33)
[2018-03-19] MEDS: Vitamin THERAPEUTIC TAB PO SCH (08:34)
[2018-03-19] MEDS: Tiotropium CAP.INH* CAP.INH/18 MCG (USE ORDER SET !) INH SCH (08:34)
[2018-03-19] MEDS: Diazepam TAB(*) 10 MG PO SCH ×2 (08:34→21:11)
[2018-03-19] MEDS: Nicotine Inhaler* 10 MG AMP INH PRN ×2 (08:36→15:25)
[2018-03-19] MEDS: hydrOXYzine HCL TAB* 25 MG PO PRN ×3 (10:56→21:13)
--- NOTE | 2018-03-19 12:29 | PN ---
Subjective - Subjective Date of Service: 03/19/18 Service Type: 12840 Hosp care 15 min low complexity Subjective: Patient seen in coverage for Dr. Boo. She remains paranoid and requests printouts of all her medications, appearing somewhat suspicious. She is tolerating her medications well and I understand that the ACT team has notified [facility] that they are willing to work with her following discharge. Kelly denies SI or HI and staff reports that she has no behavioral or management concerns on the unit. Objective - Appearance Appearance: Thin Framed Dysmorphic Features: No Hygiene: Normal Grooming: Well Kept - Behavior Psychomotor Activities: Normal Exhibits Abnormal Movement: No - Attitude and Relatedness Attitude and Relatedness: Guarded Eye Contact: Fair - Speech Quality: Unpressured Latencies: Normal Quantity: Appropriate - Mood Patient's Decription of Mood: "Okay" - Affect Observed Affect: Fair Affect Consistent with: Euthymia - Thought Process Patient's Thought Process: Coherent Thought Content: Yes Paranoid Ideation, No Passive Wish, No Suicidal Planning, No Homicidal Ideation - Sensorium Experiencing Hallucinations: No, Sensorium is Clear Type of Hallucinations: Visual: No, Auditory: No, Command: No - Level of Consciousness Level of Consciousness: Alert Orientation: Yes Intact, Yes Orientated to Time, Yes Orientated to Place, Yes Orientated to Person - Impulse Control Impulse Control: Poor - Insight and Judgement Insight and Judgement: Impaired - Group Participation Particating in Group Activities: Yes - Medication Management Medication Management Adherence: Yes Assessment - Assessment Merits Inpatient Hospitalization: For Immediate Safety, For Stabilization Inpatient DSM-V Dx: F25.0 Clinical Impression: 57 y.o. single, white female with a history of schizoaffective disorder, bipolar type, who arrives at the hospital with pronounced symptoms of paranoia, asocialization, abulia, anorexia and inability to care for herself in the outpatient environment. Plan - Plan Treatment Plan: Name: KELLY ROSARIO Birthdate: 1960 [id number] Patient on a medication regimen of asenapine 10mg SL qhs, carbamazepine XR 200mg PO qhs and diazepam 10mg PO BID. PO intake is improving, as is paranoia. ACT willing to initiate care after discharge. Needs further inpatient treatment for safety. Continued Medication Management: Start Medication Medications: Current Medications Acetaminophen (Tylenol Tab*) 650 mg PO Q4H PRN PRN Reason: PAIN or TEMP > 101 F Last Admin: 03/17/18 05:56 Dose: 650 mg Al Hydrox/Mg Hydrox/Simethicone (Maalox Plus*) 30 ml PO Q4H PRN PRN Reason: INDIGESTION Asenapine (Saphris(Nf)) 10 mg SL BEDTIME [facility] Last Admin: 03/18/18 20:48 Dose: 10 mg Carbamazepine (Tegretol Xr Tab(*)) 200 mg PO BEDTIME [facility] Last Admin: 03/18/18 20:49 Dose: 200 mg Chlorpromazine HCl (Thorazine Tab*) 50 mg PO BEDTIME [facility] Last Admin: 03/18/18 20:50 Dose: 50 mg Chlorpromazine HCl (Thorazine Tab*) 50 mg PO BEDTIME PRN PRN Reason: insomnia Device (Nicotine Mouth Piece*) 1 each INH .CARTRIDGE [facility] Device (Tiotropium Inhaler Device*) 1 each INH .USE w/ SPIRIVA CAPS [facility] Last Admin: 03/16/18 10:54 Dose: 1 each Diazepam (Valium Tab(*)) 10 mg PO BID@ [facility] Last Admin: 03/19/18 08:34 Dose: 10 mg Diphenhydramine HCl (Benadryl Po*) 50 mg PO Q6H PRN PRN Reason: AGITATION/INSOMNIA Last Admin: 03/17/18 05:57 Dose: 50 mg Hydroxyzine HCl (Atarax Tab*) 25 mg PO Q4H PRN PRN Reason: agitation/anxiety Last Admin: 03/19/18 10:56 Dose: 25 mg Ibuprofen (Motrin Tab*) 400 mg PO Q4H PRN PRN Reason: PAIN Last Admin: 03/19/18 04:55 Dose: 400 mg Multivitamins (Theragran Tab*) 1 tab PO DAILY [facility] Last Admin: 03/19/18 08:34 Dose: 1 tab Nicotine (Nicotine Inhaler*) 10 mg INH Q2H PRN PRN Reason: CRAVING Last Admin: 03/19/18 08:36 Dose: 10 mg Nicotine (Nicotine Patch 14 Mg/24 Hr*) 1 patch TRANSDERM DAILY [facility] Last Admin: 03/19/18 08:33 Dose: 1 patch Pharmacy Profile Note (Nicotine Patch Removal Note*) 1 note PATCH OFF 2100 [facility] Last Admin: 03/18/18 20:54 Dose: 1 note Tiotropium [place] (Spiriva Cap.Inh*) 1 cap INH DAILY [facility] Last Admin: 03/19/18 08:34 Dose: 1 cap - Discharge Plan Discharge Plan: Inpatient Hospitalization
[2018-03-19] MEDS: carBAMazepine ER TAB(*) 200 MG PO SCH (21:11)
[2018-03-19] MEDS: ASENAPINE 10 MG SL SCH (21:11)
[2018-03-19] MEDS: chlorproMAZINE TAB* 50 MG PO SCH (21:11)
[2018-03-19] MEDS: Nicotine Patch Removal NOTE PATCH OFF SCH (22:20)
[2018-03-20] MEDS: Vitamin THERAPEUTIC TAB PO SCH (08:20)
[2018-03-20] MEDS: Nicotine PATCH 14 MG/24 HR* PATCH TRANSDERM SCH (08:21)
[2018-03-20] MEDS: Tiotropium CAP.INH* CAP.INH/18 MCG (USE ORDER SET !) INH SCH (08:22)
[2018-03-20] MEDS: Diazepam TAB(*) 10 MG PO SCH ×2 (08:22→20:57)
[2018-03-20] MEDS: Nicotine Inhaler* 10 MG AMP INH PRN ×3 (08:23→21:33)
[2018-03-20] MEDS: Ibuprofen TAB* 400 MG PO PRN ×3 (08:25→20:57)
--- NOTE | 2018-03-20 11:45 | PN ---
Subjective - Subjective Subjective: Psychiatric Attending Progress Note: minimal improvement in mental status since admission with exception of improved appetite and 10 lb weight gain has various somatic complaints which change and are vague (ie.cant see or hear, pain, "rumbling" in my stomach). vitals have been stable. Objective - Appearance Appearance: Thin Framed Dysmorphic Features: No Hygiene: Dirty Grooming: Disheveled - Behavior Psychomotor Activities: Abnormal-Increased Exhibits Abnormal Movement: No - Attitude and Relatedness Attitude and Relatedness: Psychotically Related Eye Contact: Fair - Speech Quality: Unpressured Latencies: Short Quantity: Copious - Mood Patient's Decription of Mood: expansive, elevated - Affect Observed Affect: Labile - Thought Process Patient's Thought Process: Disorganized, Loose Associations, Tangential, Filght of Ideas Thought Content: Yes Paranoid Ideation, No Passive Wish, No Suicidal Planning, No Homicidal Ideation - Sensorium Experiencing Hallucinations: No, Sensorium is Clear Type of Hallucinations: Visual: No, Auditory: No, Command: No - Level of Consciousness Level of Consciousness: Alert Orientation: Yes Intact, Yes Orientated to Time, Yes Orientated to Place, Yes Orientated to Person - Impulse Control Impulse Control: Tenuous - Insight and Judgement Insight and Judgement: Impaired - Group Participation Particating in Group Activities: No - Medication Management Medication Management Adherence: Partial Assessment - Assessment Inpatient DSM-V Dx: F25.0 Clinical Impression: 57 yo with psychotic illness likely schizoaffective disorder patient continues to be gravely disabled and meets criteria for continued hospital treatment. patient requires stabalization. she also is failure to thrive and malnourished but has has gained 10 pounds since admission. Plan - Plan Medications: Plan: Titrate Carbamazepine ER gradually to target dose of 300 mg BID over next 3 to 4 days to target [place]/affective dysregulation Increase Saphris to 5 mg QAM and 10 mg QHS beginning on 03/23/2018 Thorazine 50 mg qhs hydroxyzine 50 mg q4h prn agitation Consider transfer to state hospital as patient may require longer term hospitalization due to limited treatment response. Will make further med changes above first and see if patient starts to respond. Acetaminophen (Tylenol Tab*) 650 mg PO Q4H PRN PRN Reason: PAIN or TEMP > 101 F Last Admin: 03/17/18 05:56 Dose: 650 mg Al Hydrox/Mg Hydrox/Simethicone (Maalox Plus*) 30 ml PO Q4H PRN PRN Reason: INDIGESTION Asenapine (Saphris(Nf)) 10 mg SL BEDTIME [facility] Last Admin: 03/19/18 21:11 Dose: 10 mg Carbamazepine (Tegretol Xr Tab(*)) 200 mg PO BEDTIME [facility] Last Admin: 03/19/18 21:11 Dose: 200 mg Chlorpromazine HCl (Thorazine Tab*) 50 mg PO BEDTIME [facility] Last Admin: 03/19/18 21:11 Dose: 50 mg Chlorpromazine HCl (Thorazine Tab*) 50 mg PO BEDTIME PRN PRN Reason: insomnia Device (Nicotine Mouth Piece*) 1 each INH .CARTRIDGE [facility] Device (Tiotropium Inhaler Device*) 1 each INH .USE w/ SPIRIVA CAPS [facility] Last Admin: 03/16/18 10:54 Dose: 1 each Diazepam (Valium Tab(*)) 10 mg PO BID@ [facility] Last Admin: 03/20/18 08:22 Dose: 10 mg Diphenhydramine HCl (Benadryl Po*) 50 mg PO Q6H PRN PRN Reason: AGITATION/INSOMNIA Last Admin: 03/17/18 05:57 Dose: 50 mg Hydroxyzine HCl (Atarax Tab*) 25 mg PO Q4H PRN PRN Reason: agitation/anxiety Last Admin: 03/19/18 21:13 Dose: 25 mg Ibuprofen (Motrin Tab*) 400 mg PO Q4H PRN PRN Reason: PAIN Last Admin: 03/20/18 08:25 Dose: 400 mg Multivitamins (Theragran Tab*) 1 tab PO DAILY [facility] Last Admin: 03/20/18 08:20 Dose: 1 tab Nicotine (Nicotine Inhaler*) 10 mg INH Q2H PRN PRN Reason: CRAVING Last Admin: 03/20/18 08:23 Dose: 10 mg Nicotine (Nicotine Patch 14 Mg/24 Hr*) 1 patch TRANSDERM DAILY [facility] Last Admin: 03/20/18 08:21 Dose: 1 patch Pharmacy Profile Note (Nicotine Patch Removal Note*) 1 note PATCH OFF 2100 [facility] Last Admin: 03/19/18 22:20 Dose: 1 note Tiotropium [place] (Spiriva Cap.Inh*) 1 cap INH DAILY [facility] Last Admin: 03/20/18 08:22 Dose: 1 cap
[2018-03-20] MEDS: hydrOXYzine HCL TAB* 25 MG PO PRN (15:38)
[2018-03-20] MEDS: ASENAPINE 10 MG SL SCH (20:57)
[2018-03-20] MEDS: carBAMazepine ER TAB(*) 200 MG PO SCH (20:58)
[2018-03-20] MEDS: chlorproMAZINE TAB* 50 MG PO SCH (20:58)
[2018-03-20] MEDS: Nicotine Patch Removal NOTE PATCH OFF SCH (20:59)
[2018-03-21] MEDS: Ibuprofen TAB* 400 MG PO PRN ×4 (03:51→20:36)
[2018-03-21] MEDS: hydrOXYzine HCL TAB* 25 MG PO PRN ×3 (03:51→20:36)
[2018-03-21] MEDS: Tiotropium CAP.INH* CAP.INH/18 MCG (USE ORDER SET !) INH SCH (09:13)
[2018-03-21] MEDS: Nicotine Inhaler* 10 MG AMP INH PRN ×2 (09:15→20:42)
[2018-03-21] MEDS: Diazepam TAB(*) 10 MG PO SCH ×2 (09:15→20:36)
[2018-03-21] MEDS: Vitamin THERAPEUTIC TAB PO SCH (09:16)
[2018-03-21] MEDS: Nicotine PATCH 14 MG/24 HR* PATCH TRANSDERM SCH (09:17)
[2018-03-21] MEDS: carBAMazepine ER TAB(*) 200 MG PO SCH ×2 (09:17→20:37)
[2018-03-21] MEDS: ASENAPINE 10 MG SL SCH (20:36)
[2018-03-21] MEDS: chlorproMAZINE TAB* 50 MG PO SCH (20:36)
[2018-03-21] MEDS: Nicotine Patch Removal NOTE PATCH OFF SCH (20:39)
[2018-03-22] MEDS: Ibuprofen TAB* 400 MG PO PRN ×4 (06:15→20:31)
[2018-03-22] MEDS: Nicotine PATCH 14 MG/24 HR* PATCH TRANSDERM SCH (08:08)
[2018-03-22] MEDS: Vitamin THERAPEUTIC TAB PO SCH (08:10)
[2018-03-22] MEDS: Diazepam TAB(*) 10 MG PO SCH ×2 (08:10→20:29)
[2018-03-22] MEDS: carBAMazepine ER TAB(*) 200 MG PO SCH ×2 (08:10→20:28)
[2018-03-22] MEDS: Tiotropium CAP.INH* CAP.INH/18 MCG (USE ORDER SET !) INH SCH (08:11)
[2018-03-22] MEDS: Nicotine Inhaler* 10 MG AMP INH PRN ×3 (09:05→20:32)
[2018-03-22] MEDS: hydrOXYzine HCL TAB* 25 MG PO PRN ×3 (11:45→20:29)
[2018-03-22] MEDS: ASENAPINE 10 MG SL SCH (20:27)
[2018-03-22] MEDS: chlorproMAZINE TAB* 50 MG PO SCH (20:28)
[2018-03-22] MEDS: Nicotine Patch Removal NOTE PATCH OFF SCH (21:34)
[2018-03-23] MEDS: Ibuprofen TAB* 400 MG PO PRN ×3 (02:35→21:47)
[2018-03-23] MEDS: hydrOXYzine HCL TAB* 25 MG PO PRN (02:35)
[2018-03-23] MEDS: Nicotine Inhaler* 10 MG AMP INH PRN ×4 (02:35→21:50)
[2018-03-23] MEDS ORDERED: ASENAPINE 10 MG SL SCH (09:00)
[2018-03-23] MEDS ORDERED: carBAMazepine ER TAB(*) 100 MG PO SCH ×2 (09:00→21:00)
[2018-03-23 09:09] LABS: ABS Basophils 0 10^3/ul (0-0.2); ABS Eosinophils 0.2 10^3/ul (0-0.6); ABS Monocytes 0.7 10^3/ul (0-0.8); ABS Nucleated RBC 0 10^3/ul; Eosinophil % 2.2 % (0-6); Hematocrit 36 % (35-47); Hemoglobin 12.6 g/dl (12.0-16.0); Lymphocyte % 11.4 % (25-47); Mean Corpuscular HGB Conc 35 g/dl (31-36); Mean Corpuscular Hemoglobin 31 pg (27-31); Mean Corpuscular Volume 89 fL (80-97); Mean Platelet Volume 7.7 um3 (7.4-10.4); Nucleated Red Blood Cells % 0; Platelet Count 188 10^3/ul (150-450); Red Blood Count 4.07 10^6/ul (4.00-5.40); Red Cell Distribution Width 14 % (10.5-15); White Blood Count 8.9 10^3/ul (3.5-10.8)
[2018-03-23] MEDS: Nicotine PATCH 14 MG/24 HR* PATCH TRANSDERM SCH (09:29)
[2018-03-23] MEDS: Diazepam TAB(*) 10 MG PO SCH ×2 (09:29→21:47)
[2018-03-23] MEDS: Tiotropium CAP.INH* CAP.INH/18 MCG (USE ORDER SET !) INH SCH (09:30)
[2018-03-23] MEDS: Vitamin THERAPEUTIC TAB PO SCH (09:30)
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
[2018-03-23] MEDS: chlorproMAZINE TAB* 100 MG PO SCH (21:47)
[2018-03-23] MEDS: carBAMazepine ER TAB(*) 200 MG PO SCH (21:48)
[2018-03-23] MEDS: carBAMazepine ER TAB(*) 100 MG PO SCH (21:48)
[2018-03-23] MEDS: Nicotine Patch Removal NOTE PATCH OFF SCH (21:51)
[2018-03-24] MEDS: Ibuprofen TAB* 400 MG PO PRN ×4 (03:30→20:45)
[2018-03-24] MEDS ORDERED: Paliperidone ER TAB* 1.5 MG TAB.ER PO SCH (09:00)
[2018-03-24] MEDS: Nicotine PATCH 14 MG/24 HR* PATCH TRANSDERM SCH (09:01)
[2018-03-24] MEDS: Vitamin THERAPEUTIC TAB PO SCH (09:02)
[2018-03-24] MEDS: Tiotropium CAP.INH* CAP.INH/18 MCG (USE ORDER SET !) INH SCH (09:02)
[2018-03-24] MEDS: Diazepam TAB(*) 10 MG PO SCH ×2 (09:02→20:39)
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
[2018-03-24] MEDS: Nicotine Inhaler* 10 MG AMP INH PRN ×2 (14:11→20:46)
[2018-03-24] MEDS: carBAMazepine ER TAB(*) 100 MG PO SCH (20:37)
[2018-03-24] MEDS: chlorproMAZINE TAB* 100 MG PO SCH (20:38)
[2018-03-24] MEDS: carBAMazepine ER TAB(*) 200 MG PO SCH (20:38)
[2018-03-24] MEDS: Nicotine Patch Removal NOTE PATCH OFF SCH (20:42)
[2018-03-25] MEDS: Ibuprofen TAB* 400 MG PO PRN ×3 (01:44→20:56)
[2018-03-25] MEDS: Nicotine PATCH 14 MG/24 HR* PATCH TRANSDERM SCH (08:53)
[2018-03-25] MEDS: Diazepam TAB(*) 10 MG PO SCH ×2 (08:54→20:57)
[2018-03-25] MEDS: Paliperidone ER TAB* 3 MG TAB.ER PO SCH (08:55)
[2018-03-25] MEDS: Vitamin THERAPEUTIC TAB PO SCH (08:56)
[2018-03-25] MEDS: Tiotropium CAP.INH* CAP.INH/18 MCG (USE ORDER SET !) INH SCH (08:56)
[2018-03-25] MEDS: Nicotine Inhaler* 10 MG AMP INH PRN ×3 (13:13→20:57)
--- NOTE | 2018-03-25 15:50 | PN ---
Subjective - Subjective Subjective: Psychiatric Attending Progress Note: Patient has been attending some groups. She has been sleeping about 6 to 7 hours per night but has several mid am awakenings. She is pleasant but continues to be hyperverbal, irrelevant, with disorganized thoughts. When engaged in conversation, she exhibits flight of ideas, rambling from one topic to the next. She makes illogic statements. She makes paranoid statements with regard to staff. She remains pressured, hyperverbal, and and cannot stop herself from constant chatter. When I ask her to stop today she is able to do so for 15 minutes. Kelly tells me she wishes to go home and not to a state hospital. I told her that we have not made decision that she needs to go to state hospital at this time. I shared that we only recently changed her medication regimen two days ago and my plan is to allow the new regimen some time to work. She was pleased to find out that she is going to have more time on the unit to recover. Objective - Appearance Appearance: Thin Framed Dysmorphic Features: No Hygiene: Dirty Grooming: Disheveled - Behavior Psychomotor Activities: Abnormal-Increased Exhibits Abnormal Movement: Yes - Attitude and Relatedness Attitude and Relatedness: Psychotically Related Eye Contact: Fair - Speech Quality: Pressured Latencies: Short Quantity: Copious - Mood Patient's Decription of Mood: elevated - Affect Observed Affect: Labile Affect Consistent with: Euphoria - Thought Process Patient's Thought Process: Disorganized, Tangential, Filght of Ideas, Circumstantial, Over Inclusive Thought Content: Yes Paranoid Ideation, No Passive Wish, No Suicidal Planning, No Homicidal Ideation - Sensorium Experiencing Hallucinations: No, Sensorium is Clear Type of Hallucinations: Visual: No, Auditory: No, Command: No - Level of Consciousness Level of Consciousness: Agitated Orientation: Yes Intact, Yes Orientated to Time, Yes Orientated to Place, Yes Orientated to Person - Impulse Control Impulse Control: Tenuous - Insight and Judgement Insight and Judgement: Poor - Group Participation Particating in Group Activities: Yes - Medication Management Medication Management Adherence: Partial Assessment - Assessment Merits Inpatient Hospitalization: For Stabilization, Diagnosis Determination, For Ongoing Evaluation, Consolidate Improvements Clinical Impression: 57 yo schizoaffective bipolar disorder manic with psychotic features. patient has made limited progress. patient started on new regimen. she continues to require inpatient level of psychiatric care for stabalization. Plan - Plan Treatment Plan: Plan: INcrease Tegretol from 500 to 600 mg qhs valium 10 mg bid cotinue invega 3 mg qam. one more day. will increase to 6 mg qam on friday increase thorazine to 150 mg qhs to target insomnia tegretol level, cbc, lft's, cmp at 6 pm tonight
[2018-03-25 18:04] LABS: ABS Basophils 0 10^3/ul (0-0.2); ABS Eosinophils 0.2 10^3/ul (0-0.6); ABS Lymphocytes 0.9 10^3/ul (1.0-4.8); ABS Monocytes 0.7 10^3/ul (0-0.8); ABS Neutrophils 3.3 10^3/ul (1.5-7.7); ABS Nucleated RBC 0 10^3/ul; Eosinophil % 3.4 % (0-6); Hematocrit 33 % (35-47); Hemoglobin 11.3 g/dl (12.0-16.0); Lymphocyte % 17.3 % (25-47); Mean Corpuscular HGB Conc 34 g/dl (31-36); Mean Corpuscular Hemoglobin 30 pg (27-31); Mean Corpuscular Volume 89 fL (80-97); Mean Platelet Volume 7.6 um3 (7.4-10.4); Nucleated Red Blood Cells % 0.1; Platelet Count 206 10^3/ul (150-450); Red Blood Count 3.74 10^6/ul (4.00-5.40); Red Cell Distribution Width 14 % (10.5-15); White Blood Count 5.1 10^3/ul (3.5-10.8)
[2018-03-25 18:19] LABS: EGFR Non-African American 65.4 (>60)
[2018-03-25] MEDS: Nicotine Patch Removal NOTE PATCH OFF SCH (20:53)
[2018-03-25] MEDS: carBAMazepine ER TAB(*) 200 MG PO SCH (20:54)
[2018-03-25] MEDS: chlorproMAZINE TAB* 100 MG PO SCH (20:55)
[2018-03-26] MEDS: Ibuprofen TAB* 400 MG PO PRN ×4 (01:20→19:11)
[2018-03-26] MEDS: Nicotine Inhaler* 10 MG AMP INH PRN ×4 (06:30→21:21)
[2018-03-26] MEDS: Nicotine PATCH 14 MG/24 HR* PATCH TRANSDERM SCH (08:50)
[2018-03-26] MEDS: Tiotropium CAP.INH* CAP.INH/18 MCG (USE ORDER SET !) INH SCH (08:51)
[2018-03-26] MEDS: Paliperidone ER TAB* 3 MG TAB.ER PO SCH (08:51)
[2018-03-26] MEDS: Vitamin THERAPEUTIC TAB PO SCH (08:51)
[2018-03-26] MEDS: Diazepam TAB(*) 10 MG PO SCH ×2 (08:55→21:18)
--- NOTE | 2018-03-26 17:29 | PN ---
MHU: Group Therapy Note - Service Type Service Type: [id number] Group Psychotherapy - Medication Education Group: Patient was attentive and participatory in group, and remained in good behavioral control. Patient expressed positive insights regarding relevant treatment interventions. Patient stated understanding of material discussed and had appropriate questions.
[2018-03-26] MEDS: carBAMazepine ER TAB(*) 200 MG PO SCH (21:16)
[2018-03-26] MEDS: chlorproMAZINE TAB* 100 MG PO SCH (21:17)
[2018-03-26] MEDS: Nicotine Patch Removal NOTE PATCH OFF SCH (21:19)
[2018-03-27] MEDS: Ibuprofen TAB* 400 MG PO PRN ×3 (05:10→20:12)
[2018-03-27] MEDS: Nicotine Inhaler* 10 MG AMP INH PRN ×3 (05:10→21:29)
[2018-03-27] MEDS: Acetaminophen TAB* 325 MG PO PRN ×3 (07:40→20:12)
[2018-03-27] MEDS ORDERED: Paliperidone ER TAB* 1.5 MG TAB.ER PO SCH (09:00)
[2018-03-27] MEDS ORDERED: Paliperidone ER TAB* 3 MG TAB.ER PO SCH (09:00)
[2018-03-27] MEDS: Vitamin THERAPEUTIC TAB PO SCH (09:45)
[2018-03-27] MEDS: Diazepam TAB(*) 10 MG PO SCH ×2 (09:45→21:25)
[2018-03-27] MEDS: Tiotropium CAP.INH* CAP.INH/18 MCG (USE ORDER SET !) INH SCH (09:45)
[2018-03-27] MEDS: Nicotine PATCH 14 MG/24 HR* PATCH TRANSDERM SCH (09:46)
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
[2018-03-27] MEDS: Nicotine Patch Removal NOTE PATCH OFF SCH (21:25)
[2018-03-27] MEDS: chlorproMAZINE TAB* 100 MG PO SCH (21:25)
[2018-03-27] MEDS: carBAMazepine ER TAB(*) 100 MG PO SCH (21:26)
[2018-03-28] MEDS: LORazepam TAB(*) 1 MG PO PRN (04:11)
[2018-03-28] MEDS: Ibuprofen TAB* 400 MG PO PRN ×4 (04:11→20:54)
[2018-03-28] MEDS: Acetaminophen TAB* 325 MG PO PRN ×4 (04:11→20:55)
[2018-03-28] MEDS: Vitamin THERAPEUTIC TAB PO SCH (09:20)
[2018-03-28] MEDS: Diazepam TAB(*) 10 MG PO SCH ×2 (09:20→20:54)
[2018-03-28] MEDS: Tiotropium CAP.INH* CAP.INH/18 MCG (USE ORDER SET !) INH SCH (09:20)
[2018-03-28] MEDS: Nicotine PATCH 14 MG/24 HR* PATCH TRANSDERM SCH (09:23)
[2018-03-28] MEDS: Nicotine Inhaler* 10 MG AMP INH PRN ×2 (13:49→20:55)
[2018-03-28] MEDS: carBAMazepine ER TAB(*) 100 MG PO SCH (20:52)
[2018-03-28] MEDS: Paliperidone ER TAB* 1.5 MG TAB.ER PO SCH (20:52)
[2018-03-28] MEDS: Nicotine Patch Removal NOTE PATCH OFF SCH (20:53)
[2018-03-28] MEDS ORDERED: Mouth Piece, Nicotine* 1 EACH CARTRIDGE ONE (20:56)
[2018-03-29] MEDS: Acetaminophen TAB* 325 MG PO PRN ×5 (02:44→23:11)
[2018-03-29] MEDS: Ibuprofen TAB* 400 MG PO PRN ×5 (02:45→23:10)
[2018-03-29] MEDS: LORazepam TAB(*) 1 MG PO PRN (02:59)
[2018-03-29] MEDS: Nicotine Inhaler* 10 MG AMP INH PRN ×2 (03:52→20:30)
[2018-03-29] MEDS: Diazepam TAB(*) 10 MG PO SCH ×2 (08:21→20:27)
[2018-03-29] MEDS: Vitamin THERAPEUTIC TAB PO SCH (08:21)
[2018-03-29] MEDS: Tiotropium CAP.INH* CAP.INH/18 MCG (USE ORDER SET !) INH SCH (08:21)
[2018-03-29] MEDS: Nicotine PATCH 14 MG/24 HR* PATCH TRANSDERM SCH (08:22)
[2018-03-29] MEDS ORDERED: Paliperidone ER TAB* 6 MG TAB.ER PO SCH (09:00)
[2018-03-29 17:31] LABS: ABS Basophils 0.1 10^3/ul (0-0.2); ABS Eosinophils 0.2 10^3/ul (0-0.6); ABS Neutrophils 4.8 10^3/ul (1.5-7.7); ABS Nucleated RBC 0 10^3/ul; Eosinophil % 2.6 % (0-6); Hematocrit 37 % (35-47); Hemoglobin 12.6 g/dl (12.0-16.0); Lymphocyte % 14.1 % (25-47); Mean Corpuscular HGB Conc 34 g/dl (31-36); Mean Corpuscular Hemoglobin 30 pg (27-31); Mean Corpuscular Volume 89 fL (80-97); Mean Platelet Volume 7.1 um3 (7.4-10.4); Nucleated Red Blood Cells % 0.1; Platelet Count 267 10^3/ul (150-450); Red Blood Count 4.15 10^6/ul (4.00-5.40); Red Cell Distribution Width 14 % (10.5-15)
[2018-03-29 17:51] LABS: EGFR Non-African American 84.8 (>60)
[2018-03-29] MEDS: Paliperidone ER TAB* 1.5 MG TAB.ER PO SCH (20:24)
[2018-03-29] MEDS: Nicotine Patch Removal NOTE PATCH OFF SCH (20:26)
[2018-03-29] MEDS: carBAMazepine ER TAB(*) 100 MG PO SCH (20:31)
[2018-03-30] MEDS: Acetaminophen TAB* 325 MG PO PRN ×2 (03:28→08:51)
[2018-03-30] MEDS: LORazepam TAB(*) 1 MG PO PRN (03:28)
[2018-03-30] MEDS: Ibuprofen TAB* 400 MG PO PRN ×4 (03:29→20:59)
[2018-03-30] MEDS: Nicotine Inhaler* 10 MG AMP INH PRN ×3 (03:57→15:33)
[2018-03-30] MEDS: Tiotropium CAP.INH* CAP.INH/18 MCG (USE ORDER SET !) INH SCH (08:46)
[2018-03-30] MEDS: Diazepam TAB(*) 10 MG PO SCH ×2 (08:46→17:20)
[2018-03-30] MEDS: Vitamin THERAPEUTIC TAB PO SCH (08:46)
[2018-03-30] MEDS: Nicotine PATCH 14 MG/24 HR* PATCH TRANSDERM SCH (08:47)
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
--- NOTE | 2018-03-30 12:00 | PN ---
MHU: Group Therapy Note - Service Type Service Type: [id number] Group Psychotherapy - Cognitive Behavioral Group Therapy ( CBT):Patient presented in CBT programming as disorganized and disruptive in discussion and needed repeated redirection to attend to presented materials.
[2018-03-30] MEDS: chlorproMAZINE TAB* 50 MG PO PRN (15:32)
[2018-03-30] MEDS: Mouth Piece, Nicotine* 1 EACH CARTRIDGE INH SCH (15:33)
[2018-03-30] MEDS: carBAMazepine ER TAB(*) 100 MG PO SCH (20:56)
[2018-03-30] MEDS: Paliperidone ER TAB* 1.5 MG TAB.ER PO SCH (20:57)
[2018-03-30] MEDS ORDERED: LORazepam TAB(*) 1 MG PO SCH (21:00)
[2018-03-30] MEDS: Nicotine Patch Removal NOTE PATCH OFF SCH (22:44)
[2018-03-31] MEDS ORDERED: Mouth Piece, Nicotine* 1 EACH CARTRIDGE ONE (05:01)
[2018-03-31] MEDS: Nicotine Inhaler* 10 MG AMP INH PRN ×4 (05:05→21:55)
[2018-03-31] MEDS: Ibuprofen TAB* 400 MG PO PRN ×3 (05:05→21:54)
[2018-03-31] MEDS: Nicotine PATCH 14 MG/24 HR* PATCH TRANSDERM SCH (08:51)
[2018-03-31] MEDS: Tiotropium CAP.INH* CAP.INH/18 MCG (USE ORDER SET !) INH SCH (08:52)
[2018-03-31] MEDS: Vitamin THERAPEUTIC TAB PO SCH (08:52)
[2018-03-31] MEDS: Diazepam TAB(*) 10 MG PO SCH ×2 (08:52→17:42)
[2018-03-31] MEDS: chlorproMAZINE TAB* 50 MG PO PRN (13:01)
--- NOTE | 2018-03-31 13:52 | PN ---
MHU: Group Therapy Note - Service Type Service Type: [id number] Group Psychotherapy - Cognitive Behavioral Group Therapy ( CBT):Patient presented in CBT programming as disorganized and disruptive in discussion and needed repeated redirection to attend to presented materials.
[2018-03-31] MEDS ORDERED: carBAMazepine ER TAB(*) 200 MG PO SCH (21:00)
[2018-03-31] MEDS ORDERED: carBAMazepine ER TAB(*) 100 MG PO SCH (21:00)
[2018-03-31] MEDS: Diazepam TAB(*) 5 MG PO SCH (21:46)
[2018-03-31] MEDS: carBAMazepine ER TAB(*) 200 MG PO SCH (21:47)
[2018-03-31] MEDS: LORazepam TAB(*) 1 MG PO SCH (21:47)
[2018-03-31] MEDS: Paliperidone ER TAB* 6 MG TAB.ER PO SCH (21:47)
[2018-03-31] MEDS: Nicotine Patch Removal NOTE PATCH OFF SCH (21:50)
[2018-04-01] MEDS: Ibuprofen TAB* 400 MG PO PRN ×4 (05:00→20:50)
[2018-04-01] MEDS: Nicotine Inhaler* 10 MG AMP INH PRN ×4 (05:00→20:54)
[2018-04-01] MEDS: Diazepam TAB(*) 5 MG PO SCH ×2 (09:39→17:28)
[2018-04-01] MEDS: Vitamin THERAPEUTIC TAB PO SCH (09:40)
[2018-04-01] MEDS: Tiotropium CAP.INH* CAP.INH/18 MCG (USE ORDER SET !) INH SCH (09:41)
[2018-04-01] MEDS: Nicotine PATCH 14 MG/24 HR* PATCH TRANSDERM SCH (09:43)
[2018-04-01] MEDS: chlorproMAZINE TAB* 50 MG PO PRN (15:56)
[2018-04-01] MEDS: carBAMazepine ER TAB(*) 200 MG PO SCH (20:49)
[2018-04-01] MEDS: Paliperidone ER TAB* 6 MG TAB.ER PO SCH (20:50)
[2018-04-01] MEDS: LORazepam TAB(*) 1 MG PO SCH (20:51)
[2018-04-01] MEDS: Nicotine Patch Removal NOTE PATCH OFF SCH (22:26)
[2018-04-02] MEDS: Ibuprofen TAB* 400 MG PO PRN ×4 (01:08→20:46)
[2018-04-02] MEDS: LORazepam TAB(*) 1 MG PO PRN (01:10)
[2018-04-02] MEDS: chlorproMAZINE TAB* 50 MG PO PRN (06:56)
[2018-04-02] MEDS: Tiotropium CAP.INH* CAP.INH/18 MCG (USE ORDER SET !) INH SCH (09:44)
[2018-04-02] MEDS: Diazepam TAB(*) 5 MG PO SCH (09:44)
[2018-04-02] MEDS: Vitamin THERAPEUTIC TAB PO SCH (09:45)
[2018-04-02] MEDS: Nicotine PATCH 14 MG/24 HR* PATCH TRANSDERM SCH (09:49)
[2018-04-02] MEDS ORDERED: carBAMazepine ER TAB(*) 200 MG PO ONE ×2 (10:26→21:00)
[2018-04-02] MEDS ORDERED: Diazepam TAB(*) 5 MG PO ONE (10:53)
[2018-04-02] MEDS: LORazepam TAB(*) 1 MG PO SCH ×2 (16:10→21:21)
[2018-04-02] MEDS: Nicotine Patch Removal NOTE PATCH OFF SCH (20:40)
[2018-04-02] MEDS: Paliperidone ER TAB* 3 MG TAB.ER PO SCH (20:40)
[2018-04-02] MEDS: Paliperidone ER TAB* 1.5 MG TAB.ER PO SCH (20:40)
[2018-04-02] MEDS: Nicotine Inhaler* 10 MG AMP INH PRN (20:47)
[2018-04-02] MEDS ORDERED: carBAMazepine ER TAB(*) 100 MG PO ONE (21:00)
[2018-04-03] MEDS: Ibuprofen TAB* 400 MG PO PRN ×4 (04:30→21:12)
[2018-04-03] MEDS: LORazepam TAB(*) 1 MG PO PRN (04:30)
[2018-04-03] MEDS: Nicotine Inhaler* 10 MG AMP INH PRN ×5 (04:30→21:16)
[2018-04-03] MEDS: Vitamin THERAPEUTIC TAB PO SCH (08:40)
[2018-04-03] MEDS: Diazepam TAB(*) 10 MG PO SCH (08:40)
[2018-04-03] MEDS: Nicotine PATCH 14 MG/24 HR* PATCH TRANSDERM SCH (08:41)
[2018-04-03] MEDS: Tiotropium CAP.INH* CAP.INH/18 MCG (USE ORDER SET !) INH SCH (08:42)
[2018-04-03] MEDS: carBAMazepine ER TAB(*) 200 MG PO SCH ×2 (08:42→21:05)
--- NOTE | 2018-04-03 10:03 | PN ---
MHU: Group Therapy Note - Service Type Service Type: [id number] Group Psychotherapy - late entry 03/31/18: Medication Education Group: Patient presented as disorganized and disruptive in discussion and needed repeated redirection to attend to presented materials. Patient receptive to redirection when monopolizing group.
--- NOTE | 2018-04-03 11:32 | RAD ---
HISTORY: treatment refractory psychosis COMPARISONS: Head CT dated April 15, 2011 TECHNIQUE: The following sequences were obtained of the head: Sagittal T1-weighted images, axial T2-weighted images, axial FLAIR images, axial susceptibility weighted images, axial T1-weighted images. Additionally, axial diffusion-weighted images were obtained with calculated apparent diffusion coefficients. FINDINGS: HEMORRHAGE/INFARCT: There is no hemorrhage or acute infarct. MASSES/SHIFT: There is no mass or shift. EXTRA-AXIAL SPACES/MENINGES: There are no extra-axial fluid collections. SULCI AND VENTRICLES: The sulci and ventricles are normal in size and position for the patient's stated age. CEREBRUM: There are few scattered small foci of elevated T2/FLAIR signal within the periventricular and subcortical white matter. BRAINSTEM: There are no focal parenchymal abnormalities. CEREBELLUM: There are no focal parenchymal abnormalities. The cerebellar tonsils are normal in size and position. SELLA: The sella is normal. PINEAL: The pineal region is clear. CP ANGLE/TEMPORAL BONES: The labyrinthine structures are grossly normal. VESSELS: Normal flow-voids are noted within the visualized vertebral vasculature. DIFFUSION ABNORMALITIES: There are no diffusion abnormalities. PARANASAL SINUSES/MASTOIDS: The paranasal sinuses are clear. ORBITS: The orbits are unremarkable. BONES AND SOFT TISSUE: No bone or soft tissue abnormalities are noted. OTHER: None IMPRESSION: THERE ARE FEW, SCATTERED, SMALL FOCI OF ELEVATED T2/FLAIR SIGNAL WITHIN THE PERIVENTRICULAR AND SUBCORTICAL WHITE MATTER. WHILE THESE FINDINGS ARE NONSPECIFIC, THEY CAN BE SEEN IN ASSOCIATION WITH MIGRAINE HEADACHE, THE SEQUELA OF PREVIOUS INFECTION OR INFLAMMATION, AND CHRONIC SMALL VESSEL ISCHEMIA. DEMYELINATING DISEASE IS ALSO WITHIN THE DIFFERENTIAL, BUT IS CONSIDERED LESS LIKELY IN THE ABSENCE OF THE APPROPRIATE CLINICAL PRESENTATION.
--- NOTE | 2018-04-03 13:39 | PN ---
Subjective - Subjective Subjective: LATE ENTRY PROGRESS NOTE FOR 04/02/2018 Patient interviewed on 04/02/2018. patient appears calmer less agitated today. continues to have rambling, tangential speech with flight of ideas and irrelevant resposnes. she slept 6 hours in two three hour blocks last night. MRI shows non specific changes but no evidence of tumor or stroke Tegretol level 3.5 mg on 500 mg daily MSE: no SI or HI denies AH VH continues with pressured and loud speech psychomotor excess racing thoughts she is not delusional today she has increased goal directed behaviors still she is not suicidal or homicidal her insight and judgment are impaired Impression: Schizoaffective bipolar currently manic Plan: INcrease Tegretol to 800 mg daily over next few days Increase Invega to 9 mg over next few days. Taper and d/c valiium while replacing with Ativan Ativan increased to 2 mg q 5pm and 4 mg po QHS to target insomnia which is preventing remission of [place]. Thorazine 50 mg q4h prn agitation follow QTc, CBC, and LFT"S likely will need transfer to [facility] hospital for longer term treatment given patient's limited gains. /response to treatment.
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
[2018-04-03] MEDS: LORazepam TAB(*) 1 MG PO SCH ×2 (16:50→21:06)
[2018-04-03] MEDS: Paliperidone ER TAB* 3 MG TAB.ER PO SCH (21:07)
[2018-04-03] MEDS: Paliperidone ER TAB* 1.5 MG TAB.ER PO SCH (21:08)
[2018-04-03] MEDS: Nicotine Patch Removal NOTE PATCH OFF SCH (21:09)
[2018-04-04] MEDS: Nicotine Inhaler* 10 MG AMP INH PRN ×3 (04:24→20:37)
[2018-04-04] MEDS: LORazepam TAB(*) 1 MG PO PRN (04:25)
[2018-04-04] MEDS: Ibuprofen TAB* 400 MG PO PRN ×3 (04:26→15:25)
[2018-04-04] MEDS: Tiotropium CAP.INH* CAP.INH/18 MCG (USE ORDER SET !) INH SCH (09:08)
[2018-04-04] MEDS: carBAMazepine ER TAB(*) 200 MG PO SCH ×2 (09:09→20:23)
[2018-04-04] MEDS: Diazepam TAB(*) 10 MG PO SCH (09:09)
[2018-04-04] MEDS: Vitamin THERAPEUTIC TAB PO SCH (09:09)
[2018-04-04] MEDS: Nicotine PATCH 14 MG/24 HR* PATCH TRANSDERM SCH (09:10)
[2018-04-04] MEDS: Paliperidone ER TAB* 1.5 MG TAB.ER PO SCH (20:22)
[2018-04-04] MEDS: LORazepam TAB(*) 1 MG PO SCH (20:22)
[2018-04-04] MEDS: Paliperidone ER TAB* 3 MG TAB.ER PO SCH (20:22)
[2018-04-04] MEDS: Nicotine Patch Removal NOTE PATCH OFF SCH (20:42)
[2018-04-05] MEDS: Ibuprofen TAB* 400 MG PO PRN ×3 (00:30→08:25)
[2018-04-05] MEDS: LORazepam TAB(*) 1 MG PO PRN (00:30)
[2018-04-05] MEDS: Nicotine Inhaler* 10 MG AMP INH PRN ×4 (04:15→21:02)
[2018-04-05] MEDS: carBAMazepine ER TAB(*) 200 MG PO SCH ×2 (08:20→20:29)
[2018-04-05] MEDS: Tiotropium CAP.INH* CAP.INH/18 MCG (USE ORDER SET !) INH SCH (08:21)
[2018-04-05] MEDS: Vitamin THERAPEUTIC TAB PO SCH (08:21)
[2018-04-05] MEDS: Diazepam TAB(*) 10 MG PO SCH (08:21)
[2018-04-05] MEDS: Nicotine PATCH 14 MG/24 HR* PATCH TRANSDERM SCH (08:22)
[2018-04-05] MEDS ORDERED: Ibuprofen TAB* 400 MG PO PRN ×2 (13:14→13:46)
[2018-04-05] MEDS ORDERED: Ibuprofen TAB* 600 MG PO PRN (13:47)
[2018-04-05] MEDS: Ibuprofen TAB* 600 MG PO PRN ×2 (14:43→19:32)
[2018-04-05] MEDS: LORazepam TAB(*) 1 MG PO SCH (20:29)
[2018-04-05] MEDS: Nicotine Patch Removal NOTE PATCH OFF SCH (20:29)
[2018-04-05] MEDS: Paliperidone ER TAB* 1.5 MG TAB.ER PO SCH (20:30)
[2018-04-05] MEDS: Paliperidone ER TAB* 3 MG TAB.ER PO SCH (20:30)
[2018-04-06] MEDS: Ibuprofen TAB* 600 MG PO PRN ×5 (03:25→22:56)
[2018-04-06] MEDS: LORazepam TAB(*) 1 MG PO PRN (03:25)
[2018-04-06] MEDS: Nicotine Inhaler* 10 MG AMP INH PRN ×3 (07:23→20:30)
[2018-04-06] MEDS: Nicotine PATCH 14 MG/24 HR* PATCH TRANSDERM SCH (08:36)
[2018-04-06] MEDS: Vitamin THERAPEUTIC TAB PO SCH (08:37)
[2018-04-06] MEDS: Tiotropium CAP.INH* CAP.INH/18 MCG (USE ORDER SET !) INH SCH (08:37)
[2018-04-06] MEDS: Diazepam TAB(*) 10 MG PO SCH (08:38)
[2018-04-06] MEDS: carBAMazepine ER TAB(*) 200 MG PO SCH ×2 (08:38→20:28)
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
[2018-04-06] MEDS: Lisinopril TAB* 10 MG PO SCH (14:13)
[2018-04-06] MEDS: Paliperidone ER TAB* 3 MG TAB.ER PO SCH (20:28)
[2018-04-06] MEDS: LORazepam TAB(*) 1 MG PO SCH (20:29)
[2018-04-06] MEDS: Nicotine Patch Removal NOTE PATCH OFF SCH (21:14)
[2018-04-07] MEDS: Ibuprofen TAB* 600 MG PO PRN ×3 (03:13→11:50)
[2018-04-07] MEDS: Lisinopril TAB* 10 MG PO SCH (07:55)
[2018-04-07] MEDS: Tiotropium CAP.INH* CAP.INH/18 MCG (USE ORDER SET !) INH SCH (07:55)
[2018-04-07] MEDS: Nicotine PATCH 14 MG/24 HR* PATCH TRANSDERM SCH (07:56)
[2018-04-07] MEDS: Diazepam TAB(*) 10 MG PO SCH (07:56)
[2018-04-07] MEDS: Vitamin THERAPEUTIC TAB PO SCH (07:56)
[2018-04-07 08:25] LABS: ABS Basophils 0.1 10^3/ul (0-0.2); ABS Eosinophils 0.2 10^3/ul (0-0.6); ABS Lymphocytes 0.9 10^3/ul (1.0-4.8); ABS Monocytes 0.7 10^3/ul (0-0.8); ABS Neutrophils 4.4 10^3/ul (1.5-7.7); ABS Nucleated RBC 0 10^3/ul; Eosinophil % 3.3 % (0-6); Hematocrit 34 % (35-47); Hemoglobin 11.8 g/dl (12.0-16.0); Lymphocyte % 14.2 % (25-47); Mean Corpuscular HGB Conc 35 g/dl (31-36); Mean Corpuscular Hemoglobin 30 pg (27-31); Mean Corpuscular Volume 86 fL (80-97); Nucleated Red Blood Cells % 0; Platelet Count 242 10^3/ul (150-450); Red Blood Count 3.91 10^6/ul (4.00-5.40); Red Cell Distribution Width 13 % (10.5-15); White Blood Count 6.4 10^3/ul (3.5-10.8)
[2018-04-07] MEDS: carBAMazepine ER TAB(*) 200 MG PO SCH ×2 (09:34→21:18)
[2018-04-07] MEDS: Nicotine Inhaler* 10 MG AMP INH PRN (09:52)
[2018-04-07] MEDS: chlorproMAZINE TAB* 50 MG PO PRN (13:04)
[2018-04-07] MEDS: Paliperidone ER TAB* 3 MG TAB.ER PO SCH (21:18)
[2018-04-07] MEDS: LORazepam TAB(*) 1 MG PO SCH (21:19)
[2018-04-07] MEDS: Nicotine Patch Removal NOTE PATCH OFF SCH (21:23)
[2018-04-08] MEDS: Ibuprofen TAB* 600 MG PO PRN ×5 (01:30→21:31)
[2018-04-08] MEDS: LORazepam TAB(*) 1 MG PO SCH ×2 (01:30→21:27)
[2018-04-08] MEDS: Nicotine Inhaler* 10 MG AMP INH PRN ×2 (06:00→15:43)
[2018-04-08] MEDS: carBAMazepine ER TAB(*) 200 MG PO SCH ×2 (08:18→21:25)
[2018-04-08] MEDS: Lisinopril TAB* 10 MG PO SCH (08:18)
[2018-04-08] MEDS: Nicotine PATCH 14 MG/24 HR* PATCH TRANSDERM SCH (08:19)
[2018-04-08] MEDS: Diazepam TAB(*) 10 MG PO SCH ×2 (08:19→21:26)
[2018-04-08] MEDS: Tiotropium CAP.INH* CAP.INH/18 MCG (USE ORDER SET !) INH SCH (08:19)
[2018-04-08] MEDS: Vitamin THERAPEUTIC TAB PO SCH (08:19)
--- NOTE | 2018-04-08 11:28 | PN ---
Subjective - Subjective Date of Service: 04/08/18 Service Type: 96000 Hosp care 15 min low complexity Subjective: Kelly had an event last night in which she presented to the nurse's station with extreme anxiety and hyperventilation. Her systolic BP was in the 70's and a CAT team response was called. She was taken to the ED where she was given diazepam and IV fluids and then returned to the [facility]. Today, she remains extremely anxious about going to the [facility]. "I'm so scared. I have PTSD you know. I've had a lot of traumas in my life and I told him [Dr. Boo ] that when he tried to take me off the anxiety pill. The patient is reassured about the therapeutic and supportive nature of the [facility] system. I encourage her to increase PO intake, fluids in particular. She denies SI or HI but continues to present with rambling, over-inclusive speech and lack of insight. Objective - Appearance Appearance: Thin Framed Dysmorphic Features: No Hygiene: Normal Grooming: Fairly Well Kept - Behavior Psychomotor Activities: Normal Exhibits Abnormal Movement: No - Attitude and Relatedness Attitude and Relatedness: Cooperative Eye Contact: Fair - Speech Quality: Unpressured Latencies: Short Quantity: Copious - Mood Patient's Decription of Mood: "Anxious" - Affect Observed Affect: Tearful Affect Consistent with: Dysphoria - Thought Process Patient's Thought Process: Tangential Thought Content: Yes Paranoid Ideation, No Passive Wish, No Suicidal Planning, No Homicidal Ideation - Sensorium Experiencing Hallucinations: No, Sensorium is Clear Type of Hallucinations: Visual: No, Auditory: No, Command: No - Level of Consciousness Level of Consciousness: Alert Orientation: Yes Intact, Yes Orientated to Time, Yes Orientated to Place, Yes Orientated to Person - Impulse Control Impulse Control: Poor - Insight and Judgement Insight and Judgement: Impaired - Group Participation Particating in Group Activities: No - Medication Management Medication Management Adherence: Yes Assessment - Assessment Merits Inpatient Hospitalization: For Immediate Safety, For Stabilization Inpatient DSM-V Dx: F25.0 Clinical Impression: 57 y.o. single, white female with a history of schizoaffective disorder, bipolar type, who arrives at the hospital, having been brought in by her sister and mother, with pronounced symptoms of paranoia, asocialization, abulia, anorexia and inability to care for herself in the outpatient environment. Plan - Plan Treatment Plan: Name: KELLY ROSARIO Birthdate: 1960 [id number] The patient remains psychotic and disorganized on a medication regimen of carbamazepine XR 400mg PO BID, lorazepam 2mg PO qpm and 4mg PO qhs, paliperidone 7.5mg PO qhs and diazepam 10mg PO qday. We will increase diazepam to 10mg PO BID d/t severe anxiety. She is appropriate for transfer to the [facility] system and this referral is pending. Continue to treat on the inpatient service. Continued Medication Management: Different Medication Medications: Current Medications Al Hydrox/Mg Hydrox/Simethicone (Maalox Plus*) 30 ml PO Q4H PRN PRN Reason: INDIGESTION Carbamazepine (Tegretol Xr Tab(*)) 400 mg PO BID@ [facility] Last Admin: 04/08/18 08:18 Dose: 400 mg Chlorpromazine HCl (Thorazine Tab*) 50 mg PO Q4H PRN PRN Reason: agitation/psychosis Last Admin: 04/07/18 13:04 Dose: 50 mg Device (Nicotine Mouth Piece*) 1 each INH .CARTRIDGE [facility] Last Admin: 03/30/18 15:33 Dose: 1 each Device (Tiotropium Inhaler Device*) 1 each INH .USE w/ SPIRIVA CAPS [facility] Last Admin: 03/16/18 10:54 Dose: 1 each Diazepam (Valium Tab(*)) 10 mg PO BID [facility] Diphenhydramine HCl (Benadryl Po*) 50 mg PO Q6H PRN PRN Reason: AGITATION/INSOMNIA Last Admin: 03/17/18 05:57 Dose: 50 mg Ibuprofen (Motrin Tab*) 600 mg PO Q4H PRN PRN Reason: PAIN Last Admin: 04/08/18 10:13 Dose: 600 mg Lisinopril (Prinivil Tab*) 20 mg PO DAILY [facility] Last Admin: 04/08/18 08:18 Dose: 20 mg Lorazepam (Ativan Tab(*)) 2 mg PO BEDTIME [facility] Last Admin: 04/08/18 01:30 Dose: 2 mg Multivitamins (Theragran Tab*) 1 tab PO DAILY [facility] Last Admin: 04/08/18 08:19 Dose: 1 tab Nicotine (Nicotine Inhaler*) 10 mg INH Q2H PRN PRN Reason: CRAVING Last Admin: 04/08/18 06:00 Dose: 10 mg Nicotine (Nicotine Patch 14 Mg/24 Hr*) 1 patch TRANSDERM DAILY [facility] Last Admin: 04/08/18 08:19 Dose: 1 patch Paliperidone (Invega Er Tab*) 9 mg PO BEDTIME [facility] Last Admin: 04/07/18 21:18 Dose: 9 mg Pharmacy Profile Note (Nicotine Patch Removal Note*) 1 note PATCH OFF 2100 [facility] Last Admin: 04/07/18 21:23 Dose: 1 note Tiotropium [place] (Spiriva Cap.Inh*) 1 cap INH DAILY [facility] Last Admin: 04/08/18 08:19 Dose: 1 cap - Discharge Plan Discharge Plan: Consider Longer Term Tx Lab Results - Lab Results Lab Results: 04/07/18 04/07/18 04/07/18 07:42 07:42 17:14 WBC 6.4 RBC 3.91 L Hgb 11.8 L Hct 34 L MCV 86 MCH 30 MCHC 35 RDW 13 Plt Count 242 MPV 7.0 L Neut % (Auto) 69.8 Lymph % (Auto) 14.2 L Jenkins % (Auto) 11.4 H Eos % (Auto) 3.3 Baso % (Auto) 1.3 Absolute Neuts (auto) 4.4 Absolute Lymphs (auto) 0.9 L Absolute Monos (auto) 0.7 Absolute Eos (auto) 0.2 Absolute Basos (auto) 0.1 Absolute Nucleated RBC 0 Nucleated RBC % 0 Sodium 123 L Potassium 4.1 Chloride 91 L Carbon Dioxide 24 Anion Gap 8 BUN 18 Creatinine 0.65 Est GFR ( Amer) 113.7 Est GFR (Non-Af Amer) 94.0 BUN/Creatinine Ratio 27.7 H Glucose 92 POC Glucose (mg/dL) 184 H Calcium 8.8 Total Bilirubin 0.40 AST 21 ALT 51 Alkaline Phosphatase 100 Total Protein 6.5 Albumin 3.9 Globulin 2.6 Albumin/Globulin Ratio 1.5 Carbamazepine 7.1
[2018-04-08] MEDS: Paliperidone ER TAB* 3 MG TAB.ER PO SCH (21:28)
[2018-04-08] MEDS: Nicotine Patch Removal NOTE PATCH OFF SCH (21:35)
[2018-04-09] MEDS: Ibuprofen TAB* 600 MG PO PRN ×4 (04:32→20:26)
[2018-04-09] MEDS: Tiotropium CAP.INH* CAP.INH/18 MCG (USE ORDER SET !) INH SCH (08:25)
[2018-04-09] MEDS: carBAMazepine ER TAB(*) 200 MG PO SCH ×2 (08:26→20:21)
[2018-04-09] MEDS: Lisinopril TAB* 10 MG PO SCH (08:26)
[2018-04-09] MEDS: Vitamin THERAPEUTIC TAB PO SCH (08:27)
[2018-04-09] MEDS: Nicotine PATCH 14 MG/24 HR* PATCH TRANSDERM SCH (08:27)
[2018-04-09] MEDS: Diazepam TAB(*) 10 MG PO SCH ×2 (08:27→20:22)
[2018-04-09] MEDS: chlorproMAZINE TAB* 50 MG PO PRN (16:09)
[2018-04-09] MEDS: Paliperidone ER TAB* 3 MG TAB.ER PO SCH (20:23)
[2018-04-09] MEDS: LORazepam TAB(*) 1 MG PO SCH (20:23)
[2018-04-09] MEDS: Nicotine Patch Removal NOTE PATCH OFF SCH (20:27)
[2018-04-10] MEDS: Ibuprofen TAB* 600 MG PO PRN ×4 (03:29→16:53)
[2018-04-10] MEDS: Tiotropium CAP.INH* CAP.INH/18 MCG (USE ORDER SET !) INH SCH (08:29)
[2018-04-10] MEDS: carBAMazepine ER TAB(*) 200 MG PO SCH ×2 (08:30→20:11)
[2018-04-10] MEDS: Lisinopril TAB* 10 MG PO SCH (08:30)
[2018-04-10] MEDS: Vitamin THERAPEUTIC TAB PO SCH (08:30)
[2018-04-10] MEDS: Diazepam TAB(*) 10 MG PO SCH ×2 (08:30→20:10)
[2018-04-10] MEDS: Nicotine PATCH 14 MG/24 HR* PATCH TRANSDERM SCH (08:32)
[2018-04-10] MEDS: chlorproMAZINE TAB* 50 MG PO PRN ×2 (12:55→16:52)
--- NOTE | 2018-04-10 14:51 | PN ---
Subjective - Subjective Date of Service: 04/10/18 Service Type: 79535 Hosp care 15 min low complexity Subjective: Kelly remains anxious and hyperverbal, fearing that she will never make it out of the [facility] alive. My attempts to assuage her fears by telling her about the [facility] the [facility] program are met with resistance. "Stop talking about the State. You're scaring me even more." She pleads with me to contact her outpatient family care provider, Dr. Lopez Shukla, however this clinician's office is closed today. She is denying SI or HI but is quite paranoid and fixated on her ADHD medication. "Dr. Boo stopped me cold turkey without no warning. I can't think without it. My head is swimming." Objective - Appearance Appearance: Thin Framed Dysmorphic Features: No Hygiene: Normal Grooming: Fairly Well Kept - Behavior Psychomotor Activities: Normal Exhibits Abnormal Movement: No - Attitude and Relatedness Attitude and Relatedness: Regressed Eye Contact: Fair - Speech Quality: Pressured Latencies: Short Quantity: Copious - Mood Patient's Decription of Mood: "Anxious" - Affect Observed Affect: Tense Affect Consistent with: Dysphoria - Thought Process Patient's Thought Process: Tangential Thought Content: Yes Paranoid Ideation, No Passive Wish, No Suicidal Planning, No Homicidal Ideation - Sensorium Experiencing Hallucinations: No, Sensorium is Clear Type of Hallucinations: Visual: No, Auditory: No, Command: No - Level of Consciousness Level of Consciousness: Agitated Orientation: Yes Intact, Yes Orientated to Time, Yes Orientated to Place, Yes Orientated to Person - Impulse Control Impulse Control: Poor - Insight and Judgement Insight and Judgement: Impaired - Group Participation Particating in Group Activities: No - Medication Management Medication Management Adherence: Yes Assessment - Assessment Merits Inpatient Hospitalization: For Immediate Safety, For Stabilization Inpatient DSM-V Dx: F25.0 Clinical Impression: 57 y.o. single, white female with a history of schizoaffective disorder, bipolar type, who arrives at the hospital, having been brought in by her sister and mother, with pronounced symptoms of paranoia, asocialization, abulia, anorexia and inability to care for herself in the outpatient environment. Plan - Plan Treatment Plan: Name: KELLY ROSARIO Birthdate: 1960 [id number] The patient remains psychotic and disorganized on a medication regimen of carbamazepine XR 400mg PO BID, paliperidone 9mg PO qhs and diazepam 10mg PO BID. We will increase paliperidone to 12mg PO qhs d/t paranoia. She is appropriate for transfer to the [facility] system and this referral is pending. Continue to treat on the inpatient service. Continued Medication Management: Different Medication Medications: Current Medications Al Hydrox/Mg Hydrox/Simethicone (Maalox Plus*) 30 ml PO Q4H PRN PRN Reason: INDIGESTION Carbamazepine (Tegretol Xr Tab(*)) 400 mg PO BID@ [facility] Last Admin: 04/10/18 08:30 Dose: 400 mg Chlorpromazine HCl (Thorazine Tab*) 50 mg PO Q4H PRN PRN Reason: agitation/psychosis Last Admin: 04/10/18 12:55 Dose: 50 mg Device (Nicotine Mouth Piece*) 1 each INH .CARTRIDGE [facility] Last Admin: 03/30/18 15:33 Dose: 1 each Device (Tiotropium Inhaler Device*) 1 each INH .USE w/ SPIRIVA CAPS [facility] Last Admin: 03/16/18 10:54 Dose: 1 each Diazepam (Valium Tab(*)) 10 mg PO BID [facility] Last Admin: 04/10/18 08:30 Dose: 10 mg Diphenhydramine HCl (Benadryl Po*) 50 mg PO Q6H PRN PRN Reason: AGITATION/INSOMNIA Last Admin: 04/10/18 11:35 Dose: 50 mg Ibuprofen (Motrin Tab*) 600 mg PO Q4H PRN PRN Reason: PAIN Last Admin: 04/10/18 12:55 Dose: 600 mg Lisinopril (Prinivil Tab*) 20 mg PO DAILY [facility] Last Admin: 04/10/18 08:30 Dose: 20 mg Multivitamins (Theragran Tab*) 1 tab PO DAILY [facility] Last Admin: 04/10/18 08:30 Dose: 1 tab Nicotine (Nicotine Inhaler*) 10 mg INH Q2H PRN PRN Reason: CRAVING Last Admin: 04/08/18 15:43 Dose: 10 mg Nicotine (Nicotine Patch 14 Mg/24 Hr*) 1 patch TRANSDERM DAILY [facility] Last Admin: 04/10/18 08:32 Dose: 1 patch Pharmacy Profile Note (Nicotine Patch Removal Note*) 1 note PATCH OFF 2100 [facility] Last Admin: 04/09/18 20:27 Dose: 1 note Tiotropium [place] (Spiriva Cap.Inh*) 1 cap INH DAILY [facility] Last Admin: 04/10/18 08:29 Dose: 1 cap - Discharge Plan Discharge Plan: Consider Longer Term Tx Lab Results - Lab Results Lab Results: 04/07/18 04/09/18 04/09/18 17:14 06:31 06:31 POC Glucose (mg/dL) 184 H Hemoglobin A1c 5.9 H Triglycerides 54 Cholesterol 204 LDL Cholesterol 108 HDL Cholesterol 85.5
[2018-04-10] MEDS: Nicotine Patch Removal NOTE PATCH OFF SCH (20:11)
[2018-04-10] MEDS: Paliperidone ER TAB* 6 MG TAB.ER PO SCH (20:11)
[2018-04-11] MEDS: Ibuprofen TAB* 600 MG PO PRN ×5 (00:06→18:46)
[2018-04-11] MEDS: chlorproMAZINE TAB* 50 MG PO PRN ×2 (00:07→12:54)
[2018-04-11] MEDS: Nicotine Inhaler* 10 MG AMP INH PRN ×3 (05:11→20:39)
[2018-04-11] MEDS: Tiotropium CAP.INH* CAP.INH/18 MCG (USE ORDER SET !) INH SCH (08:34)
[2018-04-11] MEDS: Lisinopril TAB* 10 MG PO SCH (08:34)
[2018-04-11] MEDS: Vitamin THERAPEUTIC TAB PO SCH (08:34)
[2018-04-11] MEDS: carBAMazepine ER TAB(*) 200 MG PO SCH ×2 (08:35→20:38)
[2018-04-11] MEDS: Diazepam TAB(*) 10 MG PO SCH ×2 (08:35→20:38)
[2018-04-11] MEDS: Nicotine PATCH 14 MG/24 HR* PATCH TRANSDERM SCH (08:36)
[2018-04-11] MEDS: Paliperidone ER TAB* 6 MG TAB.ER PO SCH (20:38)
[2018-04-11] MEDS: Nicotine Patch Removal NOTE PATCH OFF SCH (20:40)
[2018-04-12] MEDS: Ibuprofen TAB* 600 MG PO PRN (03:53)
[2018-04-12] MEDS: Nicotine Inhaler* 10 MG AMP INH PRN ×3 (04:15→20:34)
[2018-04-12] MEDS: Mouth Piece, Nicotine* 1 EACH CARTRIDGE INH SCH (04:15)
[2018-04-12] MEDS: chlorproMAZINE TAB* 50 MG PO PRN ×2 (04:20→18:02)
[2018-04-12] MEDS: Tiotropium CAP.INH* CAP.INH/18 MCG (USE ORDER SET !) INH SCH (08:29)
[2018-04-12] MEDS: Lisinopril TAB* 10 MG PO SCH (08:30)
[2018-04-12] MEDS: Vitamin THERAPEUTIC TAB PO SCH (08:30)
[2018-04-12] MEDS: Diazepam TAB(*) 10 MG PO SCH ×2 (08:31→20:27)
[2018-04-12] MEDS: Nicotine PATCH 14 MG/24 HR* PATCH TRANSDERM SCH (08:31)
[2018-04-12] MEDS: carBAMazepine ER TAB(*) 200 MG PO SCH ×2 (08:33→20:27)
[2018-04-12] MEDS: Paliperidone ER TAB* 6 MG TAB.ER PO SCH (20:28)
[2018-04-12] MEDS: Nicotine Patch Removal NOTE PATCH OFF SCH (20:29)
[2018-04-13] MEDS: Ibuprofen TAB* 600 MG PO PRN (02:28)
[2018-04-13] MEDS: chlorproMAZINE TAB* 50 MG PO PRN ×3 (06:24→18:28)
[2018-04-13] MEDS: Nicotine PATCH 14 MG/24 HR* PATCH TRANSDERM SCH (08:35)
[2018-04-13] MEDS: Lisinopril TAB* 10 MG PO SCH (08:36)
[2018-04-13] MEDS: Vitamin THERAPEUTIC TAB PO SCH (08:37)
[2018-04-13] MEDS: Diazepam TAB(*) 10 MG PO SCH ×2 (08:37→20:18)
[2018-04-13] MEDS: Tiotropium CAP.INH* CAP.INH/18 MCG (USE ORDER SET !) INH SCH (08:38)
[2018-04-13] MEDS: carBAMazepine ER TAB(*) 200 MG PO SCH ×2 (09:44→20:18)
[2018-04-13] MEDS: Mouth Piece, Nicotine* 1 EACH CARTRIDGE INH SCH (12:21)
[2018-04-13] MEDS: Nicotine Inhaler* 10 MG AMP INH PRN ×2 (12:22→18:28)
--- NOTE | 2018-04-13 16:25 | PN ---
Subjective - Subjective Date of Service: 04/13/18 Service Type: 50313 Hosp care 25 min moderate complexity Subjective: Patient was seen by self, discussed with treatment team, chart was reviewed. Patient has been resistant to treatment plan. Patient shows limited understanding of her condition and treatment needed for that. Patient was focused on her ADHD medications. Patient is receiving her medications, no reported side effects. Patient has limited improvement in her symptoms of Bipolar symptoms with psychosis, restless, hyperactive, pressured speech, flight of ideas. Patient sleeping has been ok. Patient eating has been ok. Patient has been superficially cooperative with staff. Patient behavior has been in control after multiple redirections. Patient mood was anxious and irritable and with racing thoughts. Patient has been reporting no suicidal or homicidal ideation. No psychotic symptoms of delusions or hallucinations. Objective - Appearance Appearance: Thin Framed Dysmorphic Features: No Hygiene: Normal Grooming: Disheveled - Behavior Psychomotor Activities: Abnormal-Increased Exhibits Abnormal Movement: No - Attitude and Relatedness Attitude and Relatedness: Superficially Cooperative - Speech Quality: Pressured Latencies: Short Quantity: Copious - Mood Patient's Decription of Mood: "Irritable" - Affect Observed Affect: Labile Affect Consistent with: Dysphoria - Thought Process Patient's Thought Process: Tangential, Circumstantial Thought Content: No Passive Wish, No Suicidal Planning, No Homicidal Ideation, No Paranoid Ideation - Sensorium Experiencing Hallucinations: No, Sensorium is Clear Type of Hallucinations: Visual: No, Auditory: No, Command: No - Level of Consciousness Level of Consciousness: Alert Orientation: Yes Intact, Yes Orientated to Time, Yes Orientated to Place, Yes Orientated to Person - Impulse Control Impulse Control: Poor - Insight and Judgement Insight and Judgement: Impaired Assessment - Assessment Inpatient DSM-V Dx: F25.0 Clinical Impression: Patient with history of Schizoaffective Disorder. Patient currently admitted due to worsening of mood and psychosis. Patient has been resistant to treatment plan and focused on her ADHD treatment. Patient is a danger to self if discharged hence medications are being adjusted and symptoms will be stabilized on inpatient with plan [facility] and [facility]. Plan - Plan Treatment Plan: Name: SHIMA ROSARIO Birthdate: 1960 [id number] - Patient continues to be hospitalized due to mood and psychosis. - Patient's medications were continued. - Patient will be monitored for improvement and side effects. Risk and benefits were discussed. - Patient was encouraged to continue his participation in the milieu, group and individual therapy. Medications: Current Medications Al Hydrox/Mg Hydrox/Simethicone (Maalox Plus*) 30 ml PO Q4H PRN PRN Reason: INDIGESTION Carbamazepine (Tegretol Xr Tab(*)) 400 mg PO BID@, [facility] Last Admin: 04/13/18 09:44 Dose: 400 mg Chlorpromazine HCl (Thorazine Tab*) 50 mg PO Q4H PRN PRN Reason: agitation/psychosis Last Admin: 04/13/18 13:38 Dose: 50 mg Device (Nicotine Mouth Piece*) 1 each INH .CARTRIDGE [facility] Last Admin: 04/13/18 12:21 Dose: 1 each Device (Tiotropium Inhaler Device*) 1 each INH .USE w/ SPIRIVA CAPS [facility] Last Admin: 03/16/18 10:54 Dose: 1 each Diazepam (Valium Tab(*)) 10 mg PO BID [facility] Last Admin: 04/13/18 08:37 Dose: 10 mg Diphenhydramine HCl (Benadryl Po*) 50 mg PO Q6H PRN PRN Reason: AGITATION/INSOMNIA Last Admin: 04/13/18 10:34 Dose: 50 mg Ibuprofen (Motrin Tab*) 600 mg PO Q4H PRN PRN Reason: PAIN Last Admin: 04/13/18 02:28 Dose: 600 mg Lisinopril (Prinivil Tab*) 20 mg PO DAILY [facility] Last Admin: 04/13/18 08:36 Dose: 20 mg Multivitamins (Theragran Tab*) 1 tab PO DAILY [facility] Last Admin: 04/13/18 08:37 Dose: 1 tab Nicotine (Nicotine Inhaler*) 10 mg INH Q2H PRN PRN Reason: CRAVING Last Admin: 04/13/18 12:22 Dose: 10 mg Nicotine (Nicotine Patch 14 Mg/24 Hr*) 1 patch TRANSDERM DAILY [facility] Last Admin: 04/13/18 08:35 Dose: 1 patch Paliperidone (Invega Er Tab*) 12 mg PO BEDTIME [facility] Last Admin: 04/12/18 20:28 Dose: 12 mg Pharmacy Profile Note (Nicotine Patch Removal Note*) 1 note PATCH OFF 2100 [facility] Last Admin: 04/12/18 20:29 Dose: 1 note Tiotropium [place] (Spiriva Cap.Inh*) 1 cap INH DAILY [facility] Last Admin: 04/13/18 08:38 Dose: 1 cap
[2018-04-13] MEDS: Paliperidone ER TAB* 6 MG TAB.ER PO SCH (20:17)
[2018-04-13] MEDS: Nicotine Patch Removal NOTE PATCH OFF SCH (20:19)
[2018-04-14] MEDS: Vitamin THERAPEUTIC TAB PO SCH ×2 (10:01→10:48)
[2018-04-14] MEDS: Diazepam TAB(*) 10 MG PO SCH ×3 (10:01→20:20)
[2018-04-14] MEDS: Lisinopril TAB* 10 MG PO SCH ×2 (10:01→10:48)
[2018-04-14] MEDS: carBAMazepine ER TAB(*) 200 MG PO SCH ×3 (10:01→20:18)
[2018-04-14] MEDS: Tiotropium CAP.INH* CAP.INH/18 MCG (USE ORDER SET !) INH SCH ×2 (10:01→10:49)
[2018-04-14] MEDS: Nicotine PATCH 14 MG/24 HR* PATCH TRANSDERM SCH ×2 (10:01→10:48)
--- NOTE | 2018-04-14 16:08 | PN ---
Subjective - Subjective Date of Service: 04/14/18 Service Type: 09492 Hosp care 15 min low complexity Subjective: Patient was seen by self, discussed with treatment team, chart was reviewed. Patient has been resistant to treatment plan. Patient shows limited understanding of her condition and treatment needed for that and refused to take Tegretol claiming that is going to cause her "blindness". When discussed about other mood stabilizer stated that she is allergic to all. Patient was focused on her ADHD medications and did take her Valium which helped her symptoms to improve. Patient was encouraged to comply with medications. Patient has limited improvement in her symptoms of Bipolar disorder with psychosis, restless, hyperactive, pressured speech, flight of ideas. Patient sleeping has been ok. Patient eating has been ok. Patient has been superficially cooperative with staff. Patient behavior has been in control after multiple redirections. Patient mood was anxious and irritable and with racing thoughts which improved somewhat after Valium was taken. Patient has been reporting no suicidal or homicidal ideation. No psychotic symptoms of delusions or hallucinations. Objective - Appearance Appearance: Thin Framed Dysmorphic Features: No Grooming: Disheveled - Behavior Psychomotor Activities: Abnormal-Increased Exhibits Abnormal Movement: No - Attitude and Relatedness Attitude and Relatedness: Minimally Cooperative Eye Contact: Fair - Speech Quality: Pressured Latencies: Short Quantity: Copious - Mood Patient's Decription of Mood: "Angry" - Affect Observed Affect: Labile Affect Consistent with: Dysphoria - Thought Process Patient's Thought Process: Disorganized, Filght of Ideas Thought Content: Yes Paranoid Ideation, No Passive Wish, No Suicidal Planning, No Homicidal Ideation - Sensorium Experiencing Hallucinations: No, Sensorium is Clear Type of Hallucinations: Visual: No, Auditory: No, Command: No - Level of Consciousness Orientation: Yes Intact, Yes Orientated to Time, Yes Orientated to Place, Yes Orientated to Person - Impulse Control Impulse Control: Impaired - Insight and Judgement Insight and Judgement: Impaired - Medication Management Medication Management Adherence: Partial Assessment - Assessment Merits Inpatient Hospitalization: For Stabilization Inpatient DSM-V Dx: F25.0 Clinical Impression: Patient with history of Schizoaffective Disorder. Patient currently admitted due to worsening of mood and psychosis. Patient has been resistant to treatment plan and focused on her ADHD treatment. Patient is a danger to self if discharged hence medications are being adjusted and symptoms will be stabilized on inpatient with plan [facility] management and stabilization. Plan - Plan Treatment Plan: Name: SHIMA ROSARIO Birthdate: 1960 [id number] - Patient continues to be hospitalized due to mood and psychosis. - Patient's medications were continued with encouragement to comply with them. - Patient will be monitored for improvement and side effects. Risk and benefits were discussed. - Patient was encouraged to continue his participation in the milieu, group and individual therapy. Medications: Current Medications Al Hydrox/Mg Hydrox/Simethicone (Maalox Plus*) 30 ml PO Q4H PRN PRN Reason: INDIGESTION Carbamazepine (Tegretol Xr Tab(*)) 400 mg PO BID@ [facility] Last Admin: 04/14/18 10:59 Dose: Not Given Chlorpromazine HCl (Thorazine Tab*) 50 mg PO Q4H PRN PRN Reason: agitation/psychosis Last Admin: 04/13/18 18:28 Dose: 50 mg Device (Nicotine Mouth Piece*) 1 each INH .CARTRIDGE [facility] Last Admin: 04/13/18 12:21 Dose: 1 each Device (Tiotropium Inhaler Device*) 1 each INH .USE w/ SPIRIVA CAPS [facility] Last Admin: 03/16/18 10:54 Dose: 1 each Diazepam (Valium Tab(*)) 10 mg PO BID [facility] Last Admin: 04/14/18 10:49 Dose: 10 mg Diphenhydramine HCl (Benadryl Po*) 50 mg PO Q6H PRN PRN Reason: AGITATION/INSOMNIA Last Admin: 04/13/18 10:34 Dose: 50 mg Ibuprofen (Motrin Tab*) 600 mg PO Q4H PRN PRN Reason: PAIN Last Admin: 04/13/18 02:28 Dose: 600 mg Lisinopril (Prinivil Tab*) 20 mg PO DAILY [facility] Last Admin: 04/14/18 10:48 Dose: 20 mg Multivitamins (Theragran Tab*) 1 tab PO DAILY [facility] Last Admin: 04/14/18 10:48 Dose: 1 tab Nicotine (Nicotine Inhaler*) 10 mg INH Q2H PRN PRN Reason: CRAVING Last Admin: 04/13/18 18:28 Dose: 10 mg Nicotine (Nicotine Patch 14 Mg/24 Hr*) 1 patch TRANSDERM DAILY [facility] Last Admin: 04/14/18 10:48 Dose: 1 patch Paliperidone (Invega Er Tab*) 12 mg PO BEDTIME [facility] Last Admin: 04/13/18 20:17 Dose: 12 mg Pharmacy Profile Note (Nicotine Patch Removal Note*) 1 note PATCH OFF 2100 [facility] Last Admin: 04/13/18 20:19 Dose: 1 note Tiotropium [employer] (Spiriva Cap.Inh*) 1 cap INH DAILY [facility] Last Admin: 04/14/18 10:49 Dose: 1 cap
[2018-04-14] MEDS: Nicotine Inhaler* 10 MG AMP INH PRN ×2 (18:01→20:56)
[2018-04-14] MEDS: Paliperidone ER TAB* 6 MG TAB.ER PO SCH (20:18)
[2018-04-14] MEDS: Nicotine Patch Removal NOTE PATCH OFF SCH (20:52)
[2018-04-14] MEDS: Ibuprofen TAB* 600 MG PO PRN (20:56)
[2018-04-15] MEDS: Ibuprofen TAB* 600 MG PO PRN ×3 (05:40→20:35)
[2018-04-15] MEDS: Tiotropium CAP.INH* CAP.INH/18 MCG (USE ORDER SET !) INH SCH (08:02)
[2018-04-15] MEDS: carBAMazepine ER TAB(*) 200 MG PO SCH (08:03)
[2018-04-15] MEDS: Diazepam TAB(*) 10 MG PO SCH ×2 (08:03→20:35)
[2018-04-15] MEDS: Lisinopril TAB* 10 MG PO SCH (08:04)
[2018-04-15] MEDS: Nicotine PATCH 14 MG/24 HR* PATCH TRANSDERM SCH (08:05)
[2018-04-15] MEDS: Vitamin THERAPEUTIC TAB PO SCH (08:05)
[2018-04-15] MEDS: Nicotine Inhaler* 10 MG AMP INH PRN (10:25)
--- NOTE | 2018-04-15 13:31 | PN ---
Subjective - Subjective Date of Service: 04/15/18 Service Type: 35341 Hosp care 25 min moderate complexity Subjective: Patient was seen by self, discussed with treatment team, chart was reviewed. Patient has been partially compliant with her medications, no reported side effects today. Patient refused Tegretol and Invega last night and is adamant about not taking it. Patient was educated about all mood stabilizer and reported that she has tried all of them and she is allergic to them. When asked further patient was unable to explain allergic reaction other than reporting that "slowed my brain". Patient was accepting to Depakote instead of Carbamazepine but was encouraged to comply with Invega. Patient continues to be hyperverbal and easily irritable, rapid speech, flight of ideas, delusional and obsessive with her thinking. Patient not approval of going to [facility]. Patient sleeping has been ok. Patient eating has been limited over last few days but reported that from today she is not fasting and was encouraged to eat her meals and drink ensure to maintain healthy weight. Patient has been cooperative with staff. Patient behavior has been in control. Patient mood was less anxious, but continued to be labile with racing thoughts. Patient has been reporting no suicidal or homicidal ideation. No psychotic symptoms of delusions or hallucinations. Objective - Appearance Appearance: Thin Framed Dysmorphic Features: No Grooming: Disheveled - Behavior Psychomotor Activities: Abnormal-Increased Exhibits Abnormal Movement: No - Attitude and Relatedness Attitude and Relatedness: Minimally Cooperative Eye Contact: Fair - Speech Quality: Pressured Latencies: Short Quantity: Copious - Mood Patient's Decription of Mood: "Anxious" - Affect Observed Affect: Labile Affect Consistent with: Dysphoria - Thought Process Patient's Thought Process: Disorganized Thought Content: Yes Paranoid Ideation, No Passive Wish, No Suicidal Planning, No Homicidal Ideation - Sensorium Experiencing Hallucinations: No, Sensorium is Clear Type of Hallucinations: Visual: No, Auditory: No, Command: No - Level of Consciousness Level of Consciousness: Alert Orientation: Yes Intact, Yes Orientated to Time, Yes Orientated to Place, Yes Orientated to Person - Impulse Control Impulse Control: Poor - Insight and Judgement Insight and Judgement: Impaired - Group Participation Particating in Group Activities: Yes - Medication Management Medication Management Adherence: Partial Assessment - Assessment Inpatient DSM-V Dx: F25.0 Clinical Impression: Patient with history of Schizoaffective Disorder. Patient currently admitted due to worsening of mood and psychosis. Patient has been resistant to treatment plan and focused on her ADHD treatment. Patient is a danger to self if discharged hence medications are being adjusted and symptoms will be stabilized on inpatient with [facility] and [facility]. Plan - Plan Treatment Plan: Name: SHIMA ROSARIO Birthdate: 1960 [id number] - Patient continues to be hospitalized due to mood and psychosis. - Patient's medications were continued with encouragement to comply with them. - Patient will be monitored for improvement and side effects. Risk and benefits were discussed. - Patient was encouraged to continue his participation in the milieu, group and individual therapy. Medications: Current Medications Al Hydrox/Mg Hydrox/Simethicone (Maalox Plus*) 30 ml PO Q4H PRN PRN Reason: INDIGESTION Chlorpromazine HCl (Thorazine Tab*) 50 mg PO Q4H PRN PRN Reason: agitation/psychosis Last Admin: 04/13/18 18:28 Dose: 50 mg Device (Nicotine Mouth Piece*) 1 each INH .[facility] Last Admin: 04/13/18 12:21 Dose: 1 each Device (Tiotropium Inhaler Device*) 1 each INH .USE w/ SPIRIVA CAPS [facility] Last Admin: 03/16/18 10:54 Dose: 1 each Diazepam (Valium Tab(*)) 10 mg PO BID [facility] Last Admin: 04/15/18 08:03 Dose: 10 mg Diphenhydramine HCl (Benadryl Po*) 50 mg PO Q6H PRN PRN Reason: AGITATION/INSOMNIA Last Admin: 04/13/18 10:34 Dose: 50 mg Divalproex Sodium (Depakote Er Tab(*)) 250 mg PO BID [facility] Ibuprofen (Motrin Tab*) 600 mg PO Q4H PRN PRN Reason: PAIN Last Admin: 04/15/18 05:40 Dose: 600 mg Lisinopril (Prinivil Tab*) 20 mg PO DAILY [facility] Last Admin: 04/15/18 08:04 Dose: 20 mg Multivitamins (Theragran Tab*) 1 tab PO DAILY [facility] Last Admin: 04/15/18 08:05 Dose: 1 tab Nicotine (Nicotine Inhaler*) 10 mg INH Q2H PRN PRN Reason: CRAVING Last Admin: 04/15/18 10:25 Dose: 10 mg Nicotine (Nicotine Patch 14 Mg/24 Hr*) 1 patch TRANSDERM DAILY [facility] Last Admin: 04/15/18 08:05 Dose: 1 patch Paliperidone (Invega Er Tab*) 12 mg PO BEDTIME [facility] Last Admin: 04/14/18 20:18 Dose: Not Given Pharmacy Profile Note (Nicotine Patch Removal Note*) 1 note PATCH OFF 2100 [facility] Last Admin: 04/14/18 20:52 Dose: 1 note Tiotropium [place] (Spiriva Cap.Inh*) 1 cap INH DAILY [facility] Last Admin: 04/15/18 08:02 Dose: 1 cap
[2018-04-15] MEDS: Divalproex ER TAB(*) 250 MG PO SCH ×2 (13:45→20:34)
[2018-04-15] MEDS: Paliperidone ER TAB* 6 MG TAB.ER PO SCH (20:35)
[2018-04-15] MEDS: Nicotine Patch Removal NOTE PATCH OFF SCH (20:47)
[2018-04-16] MEDS: Nicotine PATCH 14 MG/24 HR* PATCH TRANSDERM SCH (08:18)
[2018-04-16] MEDS: Lisinopril TAB* 10 MG PO SCH (08:19)
[2018-04-16] MEDS: Diazepam TAB(*) 10 MG PO SCH ×2 (08:19→20:35)
[2018-04-16] MEDS: Vitamin THERAPEUTIC TAB PO SCH (08:19)
[2018-04-16] MEDS: Divalproex ER TAB(*) 250 MG PO SCH ×2 (08:19→20:35)
[2018-04-16] MEDS: Tiotropium CAP.INH* CAP.INH/18 MCG (USE ORDER SET !) INH SCH (08:20)
[2018-04-16] MEDS: Nicotine Inhaler* 10 MG AMP INH PRN (08:23)
[2018-04-16] MEDS: Ibuprofen TAB* 600 MG PO PRN (10:28)
--- NOTE | 2018-04-16 11:32 | PN ---
[facility]: Group Therapy Note - Service Type Service Type: 68995 Group Psychotherapy - Cognitive Behavioral Group Therapy ( CBT):Patient was attentive and participatory in CBT programming this morning, and remained in good behavioral control. Patient expressed positive insights regarding relevant treatment interventions and goals. Kelly described feeling better after sleeping well last night. She was able to maintain a coherent and relevant conversation in this morning's group, and presents with improved affect and insight.
--- NOTE | 2018-04-16 12:19 | PN ---
Subjective - Subjective Date of Service: 04/16/18 Service Type: 10278 [facility] care 25 min moderate complexity Subjective: Patient was seen by self, discussed with treatment team, chart was reviewed. Patient has been partially compliant with her medications, no reported side effects. Patient was resistant to taking Depakote yesterday afternoon despite of giving informed consent to the provider. Patient took her Depakote last night and felt better this morning. Patient was able to sleep some what better. But patient continued to be manic with hyperverbal speech, restless with flight of ideas. Patient was also disorganized and delusional in her thinking. Patient has been refusing her Invega as well for last couple of day and requesting to be [facility] and is adamant about it.Patient reports some reduction in her symptoms. Patient sleeping has been showing some improvement . Patient eating has been fair and reports that she is not fasting any more. Patient has been cooperative with staff. Patient behavior has been in better control with constant redirections from staff. Patient mood was less anxious and dysphoric and reports some improvement in racing thoughts. Patient has been reporting no suicidal or homicidal ideation. No hallucinations reported. Objective - Appearance Dysmorphic Features: No Grooming: Disheveled - less - Behavior Psychomotor Activities: Abnormal-Increased - some improvement Exhibits Abnormal Movement: No - Attitude and Relatedness Attitude and Relatedness: Superficially Cooperative Eye Contact: Fair - Speech Quality: Pressured Latencies: Short Quantity: Copious - Mood Patient's Decription of Mood: "Great" - Affect Observed Affect: Labile Affect Consistent with: Euphoria - Thought Process Patient's Thought Process: Disorganized, Filght of Ideas Thought Content: Yes Paranoid Ideation, No Passive Wish, No Suicidal Planning, No Homicidal Ideation - Sensorium Experiencing Hallucinations: No, Sensorium is Clear Type of Hallucinations: Visual: No, Auditory: No, Command: No - Level of Consciousness Level of Consciousness: Alert Orientation: Yes Intact, Yes Orientated to Time, Yes Orientated to Place, Yes Orientated to Person - Impulse Control Impulse Control: Poor - Insight and Judgement Insight and Judgement: Poor - Group Participation Particating in Group Activities: Yes - Medication Management Medication Management Adherence: Partial Assessment - Assessment Merits Inpatient Hospitalization: For Stabilization Inpatient DSM-V Dx: F25.0 Clinical Impression: Patient with history of Schizoaffective Disorder. Patient currently admitted due to worsening of mood and psychosis. Patient has been resistant to treatment plan and focused on her ADHD treatment. Patient is a danger to self if discharged hence medications are being adjusted and symptoms will be stabilized on inpatient with plan [facility] and [facility]. Plan - Plan Treatment Plan: Name: SHIMA ROSARIO Birthdate: 1960 [id number] - Patient continues to be hospitalized due to mood and psychosis. - Patient's medications were continued with encouragement to comply with them. Patient Depakote was continued at 250mg BID and was started on Abilify 10 mg QAM with discontinuation Invega (as patient refusing it and is resistant to it) . [facility] - Patient will be monitored for improvement and side effects. Risk and benefits were discussed. - Patient was encouraged to continue his participation in the milieu, group and individual therapy. Medications: Current Medications Al Hydrox/Mg Hydrox/Simethicone (Maalox Plus*) 30 ml PO Q4H PRN PRN Reason: INDIGESTION Aripiprazole (Abilify Tab*) 10 mg PO DAILY [facility] Chlorpromazine HCl (Thorazine Tab*) 50 mg PO Q4H PRN PRN Reason: agitation/psychosis Last Admin: 04/13/18 18:28 Dose: 50 mg Device (Nicotine Mouth Piece*) 1 each INH .[facility] Last Admin: 04/13/18 12:21 Dose: 1 each Device (Tiotropium Inhaler Device*) 1 each INH .USE w/ SPIRIVA CAPS [facility] Last Admin: 03/16/18 10:54 Dose: 1 each Diazepam (Valium Tab(*)) 10 mg PO BID [facility] Last Admin: 04/16/18 08:19 Dose: 10 mg Diphenhydramine HCl (Benadryl Po*) 50 mg PO Q6H PRN PRN Reason: AGITATION/INSOMNIA Last Admin: 04/13/18 10:34 Dose: 50 mg Divalproex Sodium (Depakote Er Tab(*)) 250 mg PO BID [facility] Last Admin: 04/16/18 08:19 Dose: 250 mg Ibuprofen (Motrin Tab*) 600 mg PO Q4H PRN PRN Reason: PAIN Last Admin: 04/16/18 10:28 Dose: 600 mg Lisinopril (Prinivil Tab*) 20 mg PO DAILY [facility] Last Admin: 04/16/18 08:19 Dose: 20 mg Multivitamins (Theragran Tab*) 1 tab PO DAILY [facility] Last Admin: 04/16/18 08:19 Dose: 1 tab Nicotine (Nicotine Inhaler*) 10 mg INH Q2H PRN PRN Reason: CRAVING Last Admin: 04/16/18 08:23 Dose: 10 mg Nicotine (Nicotine Patch 14 Mg/24 Hr*) 1 patch TRANSDERM DAILY [facility] Last Admin: 04/16/18 08:18 Dose: 1 patch Pharmacy Profile Note (Nicotine Patch Removal Note*) 1 note PATCH OFF 2100 [facility] Last Admin: 04/15/18 20:47 Dose: 1 note Tiotropium [place] (Spiriva Cap.Inh*) 1 cap INH DAILY [facility] Last Admin: 04/16/18 08:20 Dose: 1 cap
[2018-04-16] MEDS: ARIPiprazole TAB* 5 MG PO SCH (12:55)
[2018-04-16] MEDS: Nicotine Patch Removal NOTE PATCH OFF SCH (20:55)
[2018-04-17] MEDS: Ibuprofen TAB* 600 MG PO PRN ×3 (00:41→15:51)
[2018-04-17] MEDS: chlorproMAZINE TAB* 50 MG PO PRN ×2 (04:22→12:27)
[2018-04-17 08:05] VITALS: BP 125/72
[2018-04-17] MEDS: Diazepam TAB(*) 10 MG PO SCH (08:27)
[2018-04-17] MEDS: ARIPiprazole TAB* 5 MG PO SCH (08:27)
[2018-04-17] MEDS: Divalproex ER TAB(*) 250 MG PO SCH (08:28)
[2018-04-17] MEDS: Nicotine PATCH 14 MG/24 HR* PATCH TRANSDERM SCH (08:28)
[2018-04-17] MEDS: Lisinopril TAB* 10 MG PO SCH (08:28)
[2018-04-17] MEDS: Vitamin THERAPEUTIC TAB PO SCH (08:29)
[2018-04-17] MEDS: Tiotropium CAP.INH* CAP.INH/18 MCG (USE ORDER SET !) INH SCH (08:29)
[2018-04-17] MEDS: Nicotine Inhaler* 10 MG AMP INH PRN ×2 (08:31→12:46)
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
[2018-04-17] MEDS ORDERED: LORazepam TAB(*) 1 MG PO ONE (15:45)
[2018-04-17] MEDS ORDERED: LORazepam TAB(*) 1 MG ONE (15:49)
== END 2018-04-17 16:05 | DRG 885 ==
LOC: ED 17:00 → BSU 03-10 02:33
PROVIDERS: ADMIT Psychiatry & Neurology Psychiatry; ATTEND Psychiatry & Neurology Psychiatry
PROC: GZHZZZZ Group Psychotherapy (ICD-10-PCS; principal; 2018-03-26)
DX: F25.0 Schizoaffective disorder, bipolar type (principal); Z68.1 Body mass index [BMI] 19.9 or less, adult; E46 Unspecified protein-calorie malnutrition; E87.1 Hypo-osmolality and hyponatremia; F84.0 Autistic disorder; J44.9 Chronic obstructive pulmonary disease, unspecified; F90.9 Attention-deficit hyperactivity disorder, unspecified type; F43.10 Post-traumatic stress disorder, unspecified; F41.9 Anxiety disorder, unspecified; F17.210 Nicotine dependence, cigarettes, uncomplicated; F22 Delusional disorders; G47.00 Insomnia, unspecified; R68.89 Other general symptoms and signs; R51 Headache; R41.0 Disorientation, unspecified; R62.7 Adult failure to thrive; K11.7 Disturbances of salivary secretion; T43.3X5A Adverse effect of phenothiazine antipsychotics and neuroleptics, initial encounter; Y92.239 Unspecified place in hospital as the place of occurrence of the external cause; Z91.5 Personal history of self-harm; Z81.8 Family history of other mental and behavioral disorders; Z72.89 Other problems related to lifestyle; Z88.8 Allergy status to other drugs, medicaments and biological substances; F31.9 Bipolar disorder, unspecified; I10 Essential (primary) hypertension; Z79.899 Other long term (current) drug therapy; R55 Syncope and collapse
CPT/HCPCS: 36415; 70551; 71046; 80053; 80061; 80076; 80156; 80307; 80320; 80329; 81003; 83036; 84443; 85025; 90847; 90853; 93005; 99222; 99231; 99232; 99238; 99284; A9270-GY; G0480; J2930

== ENCOUNTER 2018-04-07 17:35 | Emergency (ER) | payer MEDICARE, MEDICAID ==
[2018-04-07] MEDS ORDERED: NS 0.9% 1000 ML* 1,000 ML IV ONE (17:38)
[2018-04-07 17:56] LABS: ABS Basophils 0.1 10^3/ul (0-0.2); ABS Eosinophils 0.1 10^3/ul (0-0.6); ABS Lymphocytes 1.1 10^3/ul (1.0-4.8); ABS Monocytes 0.8 10^3/ul (0-0.8); ABS Neutrophils 6.4 10^3/ul (1.5-7.7); ABS Nucleated RBC 0 10^3/ul; Eosinophil % 1.2 % (0-6); Hematocrit 35 % (35-47); Lymphocyte % 12.8 % (25-47); Mean Corpuscular HGB Conc 35 g/dl (31-36); Mean Corpuscular Hemoglobin 30 pg (27-31); Mean Corpuscular Volume 86 fL (80-97); Mean Platelet Volume 6.8 um3 (7.4-10.4); Nucleated Red Blood Cells % 0; Platelet Count 264 10^3/ul (150-450); Red Cell Distribution Width 13 % (10.5-15); White Blood Count 8.4 10^3/ul (3.5-10.8)
--- NOTE | 2018-04-07 18:00 | ED ---
Complex/Multi-Sys Presentation - HPI Summary HPI Summary: This patient is a 57 year old F presenting from the [facility] to ED with a chief complaint of low BP since [employer]. The patient rates the pain 0/10 in severity. Symptoms aggravated by nothing. Symptoms alleviated by nothing. The psych department reports the patient was diaphoretic. In the ED, her BP stabilized. - History Of Current Complaint Chief Complaint: EDSyncope Time Seen by Provider: 04/07/18 17:37 Hx Obtained From: Patient, Other: - providers from psych department Onset/Duration: Sudden Onset, Lasting Minutes, Resolved Timing: Intermittent, Lasting:, Minutes Severity Currently: None Aggravating Factor(s): nothing Alleviating Factor(s): nothing Associated Signs And Symptoms: Positive: Other - The psych department reports the patient was diaphoretic and had low BP. - Allergies/Home Medications Allergies/Adverse Reactions: Allergies Allergy/AdvReac Type Severity Reaction Status Date / Time divalproex sodium Allergy Unknown Verified 03/09/18 17:42 [From Depakote] Reaction Details gabapentin [From Neurontin] Allergy Unknown Verified 03/09/18 17:42 Reaction Details lithium Allergy Unknown Verified 03/09/18 17:42 Reaction Details quetiapine [From Seroquel] Allergy See Comment Verified 03/09/18 17:42 sertraline [From Zoloft] Allergy See Comment Verified 03/09/18 17:42 PMH/Surg Hx/FS Hx/Imm Hx Endocrine/Hematology History: Reports: Hx Thyroid Disease Cardiovascular History: Denies: Hx Pacemaker/ICD Respiratory History: Reports: Hx Asthma, Hx Chronic Obstructive Pulmonary Disease (COPD) Musculoskeletal History: Reports: Hx Arthritis, Hx Back Problems Sensory History: Reports: Hx Vision Problem - pt stated, Hx Hearing Problem - pt stated Denies: Hx Contacts or Glasses, Hx Hearing Aid Opthamlomology History: Reports: Hx Vision Problem - pt stated Denies: Hx Contacts or Glasses Neurological History: Reports: Hx Seizures - pt stated, Hx Spinal Cord Injury - pt stated Psychiatric History: Reports: Hx Anxiety - pt stated, Hx Attention Deficit Hyperactivity Disorder, Hx Autism, Hx Depression - pt stated, Hx Panic Disorder , Hx Post Traumatic Stress Disorder, Hx Schizophrenia - pt stated, Hx Bipolar Disorder, Hx Suicide Attempt, Hx Substance Abuse - pt stated Denies: Hx Eating Disorder - pt stated - Surgical History Surgery Procedure, Year, and Place: Appendectomy, core needle biopsy bilateral breasts, oral surgeries Infectious Disease History: No Infectious Disease History: Reports: History Other Infectious Disease - varicella Denies: Traveled Outside the [place] in Last 30 Days - Family History Known Family History: Positive: Other - Sister has panic disorder - Social History Alcohol Use: None Hx Substance Use: Yes Substance Use Type: Reports: Marijuana Hx Tobacco Use: No Smoking Status (MU): Former Smoker Review of Systems Positive: Skin Diaphoresis Positive: Other - low BP All Other Systems Reviewed And Are Negative: Yes Physical Exam - Summary Physical Exam Summary: Appearance: Well-appearing, Well-nourished, lying in bed comfortably Skin: Warm, dry, no obvious rash Eyes: sclera anicteric, no conjunctival pallor ENT: mucous membranes moist, pharynx appears normal Neck: Supple, nontender Respiratory: Clear to auscultation, no signs of respiratory distress Cardiovascular: Normal S1, S2. No murmurs. Normal distal pulses in tibial and radial bilaterally. Abdomen: Soft, nontender, normal active bowel sounds present Musculoskeletal: Normal, Strength/ROM Intact Neurological: A&Ox3, awake and alert, mentation is normal, speech is fluent and appropriate Psychiatric: affect is normal, does not appear anxious or depressed Triage Information Reviewed: Yes Vital Signs On Initial Exam: Initial Vitals Temp Pulse Resp BP Pulse Ox 97.9 F 79 18 159/98 99 04/07/18 17:35 04/07/18 17:35 04/07/18 17:35 04/07/18 17:35 04/07/18 17:35 Vital Signs Reviewed: Yes Diagnostics - Vital Signs Vital Signs Temp Pulse Resp BP Pulse Ox 04/07/18 17:57 94 16 119/79 100 04/07/18 17:35 97.9 F 79 18 159/98 99 - Laboratory Lab Results: Lab Results 04/07/18 Range/Units 17:47 WBC 8.4 (3.5-10.8) 10^3/ul RBC 4.00 (4.00-5.40) 10^6/ul Hgb 12.0 (12.0-16.0) g/dl Hct 35 (35-47) % MCV 86 (80-97) fL MCH 30 (27-31) pg MCHC 35 (31-36) g/dl RDW 13 (10.5-15) % Plt Count 264 (150-450) 10^3/ul MPV 6.8 L (7.4-10.4) um3 Neut % (Auto) 75.9 (38-83) % Lymph % (Auto) 12.8 L (25-47) % [place] % (Auto) 9.2 H (0-7) % Eos % (Auto) 1.2 (0-6) % Baso % (Auto) 0.9 (0-2) % Absolute Neuts (auto) 6.4 (1.5-7.7) 10^3/ul Absolute Lymphs (auto) 1.1 (1.0-4.8) 10^3/ul Absolute Monos (auto) 0.8 (0-0.8) 10^3/ul Absolute Eos (auto) 0.1 (0-0.6) 10^3/ul Absolute Basos (auto) 0.1 (0-0.2) 10^3/ul Absolute Nucleated RBC 0 10^3/ul Nucleated RBC % 0 Result Diagrams: 04/07/18 17:47 04/07/18 17:47 Lab Statement: Any lab studies that have been ordered have been reviewed, and results considered in the medical decision making process. - EKG 1755 Cardiac Rate: NL EKG Rhythm: Sinus Rhythm - NSR at 70BPM, P waves, QRS complex, and T waves are within normal limits, T waves and intervals are normal, no ischemic changes. This is a normal EKG. Complex Multi-Symp Course/Dx Course Of Treatment: This is a 57-year-old woman sent in to the ED following an apparent syncopal episode associated with hypotension. Relevant history is that she was just started on lisinopril for blood pressure. She arrived to the ED awake and alert and has been observed now for about 3 hours with improvement in her blood pressure and no recurrence of her syncope. Routine EKG and lab work is unremarkable but for hyponatremia which is moderate and essentially at her baseline. This is likely related to her psychiatric medications. I do not think that the hyponatremia was a cause or contributor to her syncopal episode. I think at this point she can be safely returned to the behavioral health unit to continue her psychiatric treatment. The hospitalist service can be consult for further management recommendations. - Diagnoses Provider Diagnoses: Vasovagal syncope Discharge - Sign-Out/Discharge Documenting (check all that apply): Patient Departure - Discharge Plan Condition: Improved [place]: Galya BRUNO,L[facility] [place] [Primary Care Provider] -
[2018-04-07] MEDS ORDERED: Ibuprofen TAB* 600 MG PO ONE (18:12)
[2018-04-07] MEDS ORDERED: Diazepam TAB(*) 5 MG PO ONE (18:13)
[2018-04-07 18:19] LABS: EGFR Non-African American 90.7 (>60)
[2018-04-07 19:07] LABS: Urine Appearance Clear; Urine Blood 1+ (Negative); Urine Color Yellow; Urine Ketones Negative (Negative); Urine Protein Negative (Negative); Urine Red Blood Cell Trace(0-2/hpf) (Absent); Urine Specific Gravity 1.005 (1.010-1.030); Urine Urobilinogen Negative (Negative); Urine White Blood Cell Trace(0-5/hpf) (Absent)
[2018-04-07 20:39] VITALS: BP 146/81
== END 2018-04-07 20:38 ==
LOC: ED 17:35
DX: R55 Syncope and collapse (principal); E87.1 Hypo-osmolality and hyponatremia; F31.9 Bipolar disorder, unspecified; I10 Essential (primary) hypertension; Z79.899 Other long term (current) drug therapy; Z87.891 Personal history of nicotine dependence; Z88.8 Allergy status to other drugs, medicaments and biological substances
CPT/HCPCS: 36415; 80053; 81003; 81015; 83605; 83735; 84443; 84484; 85025; 87086; 93005; 99282; A9270-GY